=== PATIENT | female | born 1955 | race Caucasian/White ===

== ENCOUNTER → 2016-06-13 | Outpatient (REF) | payer BC ==
[~2016-06-13] MED LIST: ACET650T12 PO; ADV500INH INH; ALBU1.25 INH; ALBUTEROL INH; ASPI1TAB PO; AVEL1TAB PO; BIAX1TAB PO; BREO1INH3 INH; COMBAER6 INH; IPRATROPIUM INH; LEVA750T PO; NICO21DI5 TD; NICODIS TD; PRED20TAB PO; RIFA300C3 PO; SENO8.6T2 PO; SPIR1CAP INH; SPIRIVA HANDIHALER; TYLE500T78 PO; VITA200016 PO; VITAMIN D PO
[2016-06-13 12:22] LABS: MEAN CORPUSCULAR HEMOGLOBIN 30.7 pg (27.0-33.0); MEAN CORPUSCULAR VOLUME 95.9 fl (80.0-96.0); RED CELL DISTRIBUTION WIDTH 12.1 % (11.5-14.5); WHITE BLOOD COUNT 9.2 K/mm3 (4.0-10.0)
[2016-06-13 12:28] LABS: ALBUMIN 4.2 GM/DL (3.2-5.2); ALBUMIN/GLOBULIN RATIO 1.14 (1.00-1.93); ALKALINE PHOSPHATASE 119 U/L (45-117); ALT/SGPT 20 U/L (12-78); ANION GAP 4 MEQ/L (8-16); AST/SGOT 13 U/L (15-37); BILIRUBIN,TOTAL 0.2 MG/DL (0.2-1.0); BLOOD UREA NITROGEN 10 MG/DL (7-18); CALCIUM LEVEL 9.4 MG/DL (8.5-10.1); CARBON DIOXIDE LEVEL 37 MEQ/L (21-32); CHLORIDE LEVEL 97 MEQ/L (98-107); CREATININE FOR GFR 0.54 MG/DL (0.55-1.02); FREE T4 1.28 NG/DL (0.76-1.46); GLOMERULAR FILTRATION RATE > 60.0 (>51); GLUCOSE, FASTING 83 MG/DL (70-105); POTASSIUM SERUM 4.5 MEQ/L (3.5-5.1); SODIUM LEVEL 138 MEQ/L (136-145); TOTAL PROTEIN 7.9 GM/DL (6.4-8.2)
== END ==
LOC: M SFHCPLAZ 10:05
PROVIDERS: ATTEND Nurse Practitioner Family
DX: J44.9 Chronic obstructive pulmonary disease, unspecified (principal); K59.00 Constipation, unspecified; E55.9 Vitamin D deficiency, unspecified

== ENCOUNTER → 2016-11-21 | Outpatient (REF) | payer BC ==
[~2016-11-21] MED LIST changes: -AVEL1TAB PO; +AVEL1TAB3 PO; -BIAX1TAB PO; +BIAX500T13 PO; -LEVA750T PO; +LEVA750T7 PO; -SENO8.6T2 PO; +SENO8.6T5 PO
[2016-11-21 12:37] LABS: BASO # 0.1 K/mm3 (0.0-0.2); BASO % 0.6 % (0.0-1.0); EOS # 0.2 K/mm3 (0.0-0.50); EOS % 2.2 % (0.0-3.0); LARGE UNSTAINED CELL # 0.1 K/mm3 (0.0-0.4); LARGE UNSTAINED CELL % 1.2 % (0.0-4.0); LYMPH # 1.5 K/mm3 (1.5-4.5); LYMPH % 15.1 % (24.0-44.0); MEAN CORPUSCULAR HEMOGLOBIN 31.8 pg (27.0-33.0); MEAN CORPUSCULAR HGB CONC 33.5 g/dl (32.0-36.5); MEAN CORPUSCULAR VOLUME 94.9 fl (80.0-96.0); MONO # 0.7 K/mm3 (0.0-0.8); MONO % 6.5 % (0.0-5.0); NEUTROPHILS # 7.4 K/mm3 (1.8-7.7); NEUTROPHILS % 74.3 % (36.0-66.0); PLATELET COUNT, AUTOMATED 386 k/mm3 (150-450); RED CELL DISTRIBUTION WIDTH 12.4 % (11.5-14.5); WHITE BLOOD COUNT 9.9 K/mm3 (4.0-10.0)
[2016-11-21 13:12] LABS: ALBUMIN 3.6 GM/DL (3.2-5.2); ALKALINE PHOSPHATASE 119 U/L (45-117); ALT/SGPT 21 U/L (12-78); ANION GAP 6 MEQ/L (8-16); AST/SGOT 15 U/L (15-37); BILIRUBIN,TOTAL 0.3 MG/DL (0.2-1.0); BLOOD UREA NITROGEN 9 MG/DL (7-18); CALCIUM LEVEL 9.5 MG/DL (8.5-10.1); CARBON DIOXIDE LEVEL 35 MEQ/L (21-32); CHLORIDE LEVEL 96 MEQ/L (98-107); FREE T4 1.31 NG/DL (0.76-1.46); GLOMERULAR FILTRATION RATE > 60.0 (>51); GLUCOSE, FASTING 83 MG/DL (70-105); POTASSIUM SERUM 4.7 MEQ/L (3.5-5.1); SODIUM LEVEL 137 MEQ/L (136-145); TOTAL PROTEIN 7.6 GM/DL (6.4-8.2)
== END ==
LOC: M SFHCPLAZ 09:29
PROVIDERS: ATTEND Nurse Practitioner Family
DX: J44.9 Chronic obstructive pulmonary disease, unspecified (principal); K59.00 Constipation, unspecified; E55.9 Vitamin D deficiency, unspecified

== ENCOUNTER → 2017-02-10 | Outpatient (CLI) | payer BC ==
--- NOTE | 2017-02-10 12:58 | REP ---
Clinical: Chronic obstructive pulmonary disease. Technique: PA and lateral. Comparison: 07/08/2015. Findings: Advanced COPD and emphysematous changes with biapical scarring. A 3.1 cm nodular opacity in the right upper lung zone represents a change from prior examination and warrants CT evaluation. No effusion. No pneumothorax. Mediastinum and cardiac silhouette are stable and within normal limits. Skeletal structures are intact. Impression: Advanced COPD/emphysematous changes with biapical scarring. Zero 3.1 cm nodular opacity in the right upper lung zone. Contrast enhanced chest CT is recommended for further investigation. Signed by Derik Bajwa MD 02/10/2017 12:49 P
== END ==
LOC: M RAD 12:23
PROVIDERS: ATTEND Internal Medicine Pulmonary Disease
DX: J44.9 Chronic obstructive pulmonary disease, unspecified (principal)

== ENCOUNTER 2017-04-01 19:11 | Inpatient (IN) | payer BC ==
[2017-04-01] MEDS: methylPREDNISolone INJ 125 MG/2 ML VIAL (J2930) IV (20:00)
[2017-04-01] MEDS: IPRATROPIUM 0.5MG/ALBUTEROL 2.5MG INH SOL UD 3ML (DUONEB)(J7620) NEB ×3 (20:09→21:02)
[2017-04-01 20:26] LABS: ABG BASE EXCESS 24.7 (-2.0-2.0); ABG HCO3 60.5 MEQ/L (22.0-26.0); ABG O2 SATURATION 98.5 % (95.0-99.0); ABG PARTIAL PRESSURE O2 114.2 mmHg (75.0-100.0); ABG STANDARD HCO3 50.1 MEQ/L (22.0-26.0)
[2017-04-01 20:27] LABS: ABG PARTIAL PRESSURE CO2 145.5 mmHg (35.0-45.0); ABG pH (ARTERIAL) 7.237 UNITS (7.350-7.450)
[2017-04-01 20:31] LABS: BASO % 0.3 % (0.0-1.0); EOS # 0.1 10^3/uL (0.0-0.50); EOS % 0.8 % (0.0-3.0); HEMATOCRIT 48.3 % (36.0-47.0); HEMOGLOBIN 14.1 g/dl (12.0-16.0); IMMATURE GRANULOCYTE % 0.3 % (0-0); LYMPH # 0.9 10^3/uL (1.5-4.5); LYMPH % 8.2 % (24.0-44.0); MEAN CORPUSCULAR HGB CONC 29.2 g/dl (32.0-36.5); MEAN CORPUSCULAR VOLUME 102.8 fl (80.0-96.0); MONO # 1.4 10^3/uL (0.0-0.8); MONO % 12.5 % (0.0-5.0); NEUTROPHILS # 8.9 10^3/uL (1.8-7.7); NEUTROPHILS % 77.9 % (36.0-66.0); PLATELET COUNT, AUTOMATED 207 10^3/uL (150-450); RED CELL DISTRIBUTION WIDTH 13.3 % (11.5-14.5); WHITE BLOOD COUNT 11.4 10^3/uL (4.0-10.0)
[2017-04-01 20:59] LABS: LACTIC ACID SEPSIS PROTOCOL 0.5 MMOL/L (0.4-2.0)
[2017-04-01] MEDS ORDERED: IPRATROPIUM 0.5MG/ALBUTEROL 2.5MG INH SOL UD 3ML (DUONEB)(J7620) INH (21:30)
[2017-04-01] MEDS: NICOTINE 7 MG/24 HR TRANSDERMAL TD (21:45)
[2017-04-01 21:51] LABS: ABG BASE EXCESS 27.7 (-2.0-2.0); ABG HCO3 62.4 MEQ/L (22.0-26.0); ABG O2 SATURATION 93.1 % (95.0-99.0); ABG PARTIAL PRESSURE O2 60.4 mmHg (75.0-100.0); ABG STANDARD HCO3 53.6 MEQ/L (22.0-26.0); ABG TOTAL CO2 66.4 MEQ/L (22.0-29.0); ABG pH (ARTERIAL) 7.303 UNITS (7.350-7.450)
[2017-04-01 21:52] LABS: BLOOD UREA NITROGEN 16 MG/DL (7-18); CALCIUM LEVEL 10.2 MG/DL (8.5-10.1); CHLORIDE LEVEL 91 MEQ/L (98-107); CPK CREATINE PHOSPHOKINASE 55 U/L (26-192); CREATININE FOR GFR 0.38 MG/DL (0.55-1.02); GLOMERULAR FILTRATION RATE > 60.0 (>51); GLUCOSE, FASTING 111 MG/DL (70-105); TROPONIN I < 0.02 NG/ML (< 0.10)
[2017-04-01 21:53] LABS: ABG PARTIAL PRESSURE CO2 128.9 mmHg (35.0-45.0); CK-MB VALUE MASS 4.6 NG/ML (0.0-3.6); MB/CK RELATIVE INDEX 8.36 (< OR =4)
[2017-04-01 22:05] LABS: CARBON DIOXIDE LEVEL 50 MEQ/L (21-32); POTASSIUM SERUM 4.1 MEQ/L (3.5-5.1); SODIUM LEVEL 140 MEQ/L (136-145)
[2017-04-02] MEDS: methylPREDNISolone INJ 125 MG/2 ML VIAL (J2930) IV ×3 (05:35→22:11)
[2017-04-02 07:59] LABS: BASO % 0.2 % (0.0-1.0); EOS # 0.1 10^3/uL (0.0-0.50); EOS % 0.8 % (0.0-3.0); HEMATOCRIT 45.7 % (36.0-47.0); HEMOGLOBIN 13.5 g/dl (12.0-16.0); IMMATURE GRANULOCYTE # 0.1 10^3/uL (0-0); IMMATURE GRANULOCYTE % 0.6 % (0-0); LYMPH # 0.8 10^3/uL (1.5-4.5); LYMPH % 9.4 % (24.0-44.0); MEAN CORPUSCULAR HEMOGLOBIN 30.3 pg (27.0-33.0); MEAN CORPUSCULAR HGB CONC 29.5 g/dl (32.0-36.5); MEAN CORPUSCULAR VOLUME 102.5 fl (80.0-96.0); MONO # 0.2 10^3/uL (0.0-0.8); MONO % 2.7 % (0.0-5.0); NEUTROPHILS # 7.6 10^3/uL (1.8-7.7); NEUTROPHILS % 86.3 % (36.0-66.0); PLATELET COUNT, AUTOMATED 205 10^3/uL (150-450); RED BLOOD COUNT 4.46 10^6/uL (4.00-5.40); RED CELL DISTRIBUTION WIDTH 13.4 % (11.5-14.5); WHITE BLOOD COUNT 8.8 10^3/uL (4.0-10.0)
[2017-04-02] MEDS: ALBUTEROL SULFATE 2.5 MG/0.5 ML INH NEB SOLN INH ×2 (08:01→20:05)
[2017-04-02 08:13] LABS: ABG BASE EXCESS 25.1 (-2.0-2.0); ABG HCO3 60.4 MEQ/L (22.0-26.0); ABG O2 SATURATION 98.2 % (95.0-99.0); ABG PARTIAL PRESSURE O2 105.5 mmHg (75.0-100.0); ABG STANDARD HCO3 50.6 MEQ/L (22.0-26.0); ABG TOTAL CO2 64.6 MEQ/L (22.0-29.0); ABG pH (ARTERIAL) 7.263 UNITS (7.350-7.450)
[2017-04-02 08:19] LABS: ABG PARTIAL PRESSURE CO2 136.7 mmHg (35.0-45.0)
[2017-04-02 08:26] LABS: BLOOD UREA NITROGEN 14 MG/DL (7-18); CALCIUM LEVEL 9.7 MG/DL (8.5-10.1); CHLORIDE LEVEL 89 MEQ/L (98-107); CREATININE FOR GFR 0.45 MG/DL (0.55-1.02); GLOMERULAR FILTRATION RATE > 60.0 (>51); GLUCOSE, FASTING 200 MG/DL (70-105); SODIUM LEVEL 138 MEQ/L (136-145)
[2017-04-02 08:40] LABS: ANION GAP 1 MEQ/L (8-16); CARBON DIOXIDE LEVEL 48 MEQ/L (21-32)
[2017-04-02] MEDS: TIOTROPIUM INHALER/CAPSULE (SPIRIVA) INH (09:00)
[2017-04-02 09:58] LABS: ABG BASE EXCESS 19.8 (-2.0-2.0); ABG HCO3 49.2 MEQ/L (22.0-26.0); ABG O2 SATURATION 98.8 % (95.0-99.0); ABG PARTIAL PRESSURE O2 119.3 mmHg (75.0-100.0); ABG STANDARD HCO3 44.3 MEQ/L (22.0-26.0); ABG TOTAL CO2 51.7 MEQ/L (22.0-29.0); ABG pH (ARTERIAL) 7.412 UNITS (7.350-7.450)
[2017-04-02 10:00] LABS: ABG PARTIAL PRESSURE CO2 79.1 mmHg (35.0-45.0)
[2017-04-02] MEDS: ASPIRIN 81 MG ENTERIC TAB PO (10:32)
[2017-04-02] MEDS: VITAMIN D 1,000 INTERNATIONAL UNITS TABLET PO (10:32)
[2017-04-02] MEDS: buPROPion **XL** TABLET 150MG (WELLBUTRIN XL) PO (10:32)
[2017-04-02] MEDS: ESCITALOPRAM OXALATE 10 MG TAB (LEXAPRO) PO (10:32)
[2017-04-02] MEDS: ENOXAPARIN 40 MG/0.4 ML SYRINGE (J1650) SC (10:33)
[2017-04-02 12:56] LABS: ABG BASE EXCESS 17.6 (-2.0-2.0); ABG HCO3 47.9 MEQ/L (22.0-26.0); ABG O2 SATURATION 74.7 % (95.0-99.0); ABG STANDARD HCO3 41.1 MEQ/L (22.0-26.0); ABG TOTAL CO2 50.5 MEQ/L (22.0-29.0); ABG pH (ARTERIAL) 7.369 UNITS (7.350-7.450)
[2017-04-02 12:57] LABS: ABG PARTIAL PRESSURE CO2 84.9 mmHg (35.0-45.0); ABG PARTIAL PRESSURE O2 34.7 mmHg (75.0-100.0)
[2017-04-03] MEDS: methylPREDNISolone INJ 125 MG/2 ML VIAL (J2930) IV ×3 (05:54→21:27)
[2017-04-03 07:28] LABS: BASO % 0.1 % (0.0-1.0); HEMOGLOBIN 14.3 g/dl (12.0-16.0); IMMATURE GRANULOCYTE % 0.4 % (0-0); LYMPH # 0.9 10^3/uL (1.5-4.5); MEAN CORPUSCULAR HEMOGLOBIN 30.2 pg (27.0-33.0); MEAN CORPUSCULAR HGB CONC 31.1 g/dl (32.0-36.5); MEAN CORPUSCULAR VOLUME 97.3 fl (80.0-96.0); MONO # 0.5 10^3/uL (0.0-0.8); MONO % 6.3 % (0.0-5.0); NEUTROPHILS % 81.2 % (36.0-66.0); PLATELET COUNT, AUTOMATED 218 10^3/uL (150-450); RED BLOOD COUNT 4.73 10^6/uL (4.00-5.40); RED CELL DISTRIBUTION WIDTH 13.2 % (11.5-14.5); WHITE BLOOD COUNT 7.4 10^3/uL (4.0-10.0)
[2017-04-03 07:56] LABS: BLOOD UREA NITROGEN 21 MG/DL (7-18); CALCIUM LEVEL 9.9 MG/DL (8.5-10.1); CHLORIDE LEVEL 92 MEQ/L (98-107); GLOMERULAR FILTRATION RATE > 60.0 (>51); GLUCOSE, FASTING 117 MG/DL (70-105); POTASSIUM SERUM 3.8 MEQ/L (3.5-5.1); SODIUM LEVEL 139 MEQ/L (136-145)
[2017-04-03 08:29] LABS: ANION GAP 2 MEQ/L (8-16); CARBON DIOXIDE LEVEL 45 MEQ/L (21-32)
[2017-04-03] MEDS: ALBUTEROL SULFATE 2.5 MG/0.5 ML INH NEB SOLN INH (08:57)
[2017-04-03] MEDS: TIOTROPIUM INHALER/CAPSULE (SPIRIVA) INH (08:58)
[2017-04-03] MEDS: buPROPion **XL** TABLET 150MG (WELLBUTRIN XL) PO (09:41)
[2017-04-03] MEDS: VITAMIN D 1,000 INTERNATIONAL UNITS TABLET PO (09:41)
[2017-04-03] MEDS: ASPIRIN 81 MG ENTERIC TAB PO (09:41)
[2017-04-03] MEDS: ESCITALOPRAM OXALATE 10 MG TAB (LEXAPRO) PO (09:41)
[2017-04-03 09:42] LABS: ABG BASE EXCESS 12.4 (-2.0-2.0); ABG HCO3 39.5 MEQ/L (22.0-26.0); ABG O2 SATURATION 94.2 % (95.0-99.0); ABG STANDARD HCO3 36.1 MEQ/L (22.0-26.0); ABG TOTAL CO2 41.4 MEQ/L (22.0-29.0); ABG pH (ARTERIAL) 7.426 UNITS (7.350-7.450)
[2017-04-03] MEDS: ENOXAPARIN 40 MG/0.4 ML SYRINGE (J1650) SC (09:42)
[2017-04-03 09:46] LABS: ABG PARTIAL PRESSURE CO2 61.5 mmHg (35.0-45.0)
[2017-04-03 09:47] LABS: ABG PARTIAL PRESSURE O2 71.1 mmHg (75.0-100.0)
[2017-04-03 11:43] LABS: ABG BASE EXCESS 18.5 (-2.0-2.0); ABG HCO3 47.5 MEQ/L (22.0-26.0); ABG O2 SATURATION 94.2 % (95.0-99.0); ABG PARTIAL PRESSURE O2 67.7 mmHg (75.0-100.0); ABG STANDARD HCO3 42.7 MEQ/L (22.0-26.0); ABG TOTAL CO2 49.8 MEQ/L (22.0-29.0); ABG pH (ARTERIAL) 7.418 UNITS (7.350-7.450)
[2017-04-03 11:46] LABS: ABG PARTIAL PRESSURE CO2 75.2 mmHg (35.0-45.0)
[2017-04-03] MEDS ORDERED: ALBUTEROL SULFATE 2.5 MG/0.5 ML INH NEB SOLN NEB (18:30)
[2017-04-03] MEDS: IPRATROPIUM 0.5MG/ALBUTEROL 2.5MG INH SOL UD 3ML (DUONEB)(J7620) NEB (23:34)
[2017-04-03] MEDS: SYMBICORT 160/4.5MCG INHALER 6GM INH (23:35)
[2017-04-04 05:14] LABS: HEMATOCRIT 45.7 % (36.0-47.0); HEMOGLOBIN 14.2 g/dl (12.0-16.0); IMMATURE GRANULOCYTE % 0.4 % (0-0); LYMPH # 0.9 10^3/uL (1.5-4.5); MEAN CORPUSCULAR HEMOGLOBIN 30.1 pg (27.0-33.0); MEAN CORPUSCULAR HGB CONC 31.1 g/dl (32.0-36.5); MONO # 0.3 10^3/uL (0.0-0.8); MONO % 4.3 % (0.0-5.0); NEUTROPHILS % 83.3 % (36.0-66.0); PLATELET COUNT, AUTOMATED 210 10^3/uL (150-450); RED BLOOD COUNT 4.71 10^6/uL (4.00-5.40); RED CELL DISTRIBUTION WIDTH 13.2 % (11.5-14.5); WHITE BLOOD COUNT 7.2 10^3/uL (4.0-10.0)
[2017-04-04] MEDS: methylPREDNISolone INJ 125 MG/2 ML VIAL (J2930) IV (05:19)
[2017-04-04 05:35] LABS: BLOOD UREA NITROGEN 35 MG/DL (7-18); CALCIUM LEVEL 9.5 MG/DL (8.5-10.1); CHLORIDE LEVEL 93 MEQ/L (98-107); CREATININE FOR GFR 0.46 MG/DL (0.55-1.02); GLOMERULAR FILTRATION RATE > 60.0 (>51); GLUCOSE, FASTING 122 MG/DL (70-105); POTASSIUM SERUM 3.9 MEQ/L (3.5-5.1); SODIUM LEVEL 140 MEQ/L (136-145)
[2017-04-04 05:47] LABS: CARBON DIOXIDE LEVEL 50 MEQ/L (21-32)
[2017-04-04] MEDS: SYMBICORT 160/4.5MCG INHALER 6GM INH ×2 (07:40→20:32)
[2017-04-04] MEDS: IPRATROPIUM 0.5MG/ALBUTEROL 2.5MG INH SOL UD 3ML (DUONEB)(J7620) NEB ×4 (07:40→20:00)
[2017-04-04] MEDS: TIOTROPIUM INHALER/CAPSULE (SPIRIVA) INH (07:40)
[2017-04-04 07:43] LABS: ABG BASE EXCESS 18.3 (-2.0-2.0); ABG HCO3 49.2 MEQ/L (22.0-26.0); ABG O2 SATURATION 96.7 % (95.0-99.0); ABG PARTIAL PRESSURE O2 86.5 mmHg (75.0-100.0); ABG STANDARD HCO3 42.6 MEQ/L (22.0-26.0); ABG pH (ARTERIAL) 7.352 UNITS (7.350-7.450)
[2017-04-04 07:45] LABS: ABG PARTIAL PRESSURE CO2 90.7 mmHg (35.0-45.0)
[2017-04-04] MEDS: VITAMIN D 1,000 INTERNATIONAL UNITS TABLET PO (09:30)
[2017-04-04] MEDS: ESCITALOPRAM OXALATE 10 MG TAB (LEXAPRO) PO (09:30)
[2017-04-04] MEDS: buPROPion **XL** TABLET 150MG (WELLBUTRIN XL) PO (09:30)
[2017-04-04] MEDS: ASPIRIN 81 MG ENTERIC TAB PO (09:31)
[2017-04-04] MEDS: ENOXAPARIN 40 MG/0.4 ML SYRINGE (J1650) SC (09:31)
[2017-04-04] MEDS: predniSONE 20 MG TAB PO (11:38)
[2017-04-05 06:46] LABS: HEMATOCRIT 43.9 % (36.0-47.0); HEMOGLOBIN 13.4 g/dl (12.0-16.0); IMMATURE GRANULOCYTE % 0.2 % (0-0); LYMPH # 1.6 10^3/uL (1.5-4.5); LYMPH % 17.7 % (24.0-44.0); MEAN CORPUSCULAR HEMOGLOBIN 29.8 pg (27.0-33.0); MEAN CORPUSCULAR HGB CONC 30.5 g/dl (32.0-36.5); MEAN CORPUSCULAR VOLUME 97.6 fl (80.0-96.0); MONO # 1.4 10^3/uL (0.0-0.8); MONO % 15.3 % (0.0-5.0); NEUTROPHILS # 6.2 10^3/uL (1.8-7.7); NEUTROPHILS % 66.8 % (36.0-66.0); PLATELET COUNT, AUTOMATED 198 10^3/uL (150-450); RED CELL DISTRIBUTION WIDTH 13.5 % (11.5-14.5); WHITE BLOOD COUNT 9.3 10^3/uL (4.0-10.0)
[2017-04-05 07:06] LABS: BLOOD UREA NITROGEN 31 MG/DL (7-18); CALCIUM LEVEL 9.2 MG/DL (8.5-10.1); CHLORIDE LEVEL 96 MEQ/L (98-107); GLOMERULAR FILTRATION RATE > 60.0 (>51); GLUCOSE, FASTING 87 MG/DL (70-105); POTASSIUM SERUM 3.4 MEQ/L (3.5-5.1); SODIUM LEVEL 143 MEQ/L (136-145)
[2017-04-05 07:14] LABS: ANION GAP 0 MEQ/L (8-16)
[2017-04-05 07:21] LABS: CARBON DIOXIDE LEVEL 47 MEQ/L (21-32)
[2017-04-05] MEDS: IPRATROPIUM 0.5MG/ALBUTEROL 2.5MG INH SOL UD 3ML (DUONEB)(J7620) NEB ×4 (07:54→19:59)
[2017-04-05] MEDS: TIOTROPIUM INHALER/CAPSULE (SPIRIVA) INH (07:54)
[2017-04-05] MEDS: SYMBICORT 160/4.5MCG INHALER 6GM INH ×2 (07:55→19:58)
[2017-04-05] MEDS: ASPIRIN 81 MG ENTERIC TAB PO (08:59)
[2017-04-05] MEDS: VITAMIN D 1,000 INTERNATIONAL UNITS TABLET PO (08:59)
[2017-04-05] MEDS: buPROPion **XL** TABLET 150MG (WELLBUTRIN XL) PO (08:59)
[2017-04-05] MEDS: predniSONE 20 MG TAB PO (08:59)
[2017-04-05] MEDS: POTASSIUM CHLORIDE 10 MEQ SR TABLET PO (08:59)
[2017-04-05] MEDS: ESCITALOPRAM OXALATE 10 MG TAB (LEXAPRO) PO (08:59)
[2017-04-05] MEDS: ENOXAPARIN 40 MG/0.4 ML SYRINGE (J1650) SC (09:00)
[2017-04-06 06:47] LABS: BASO % 0.1 % (0.0-1.0); EOS % 0.2 % (0.0-3.0); HEMATOCRIT 42.6 % (36.0-47.0); IMMATURE GRANULOCYTE % 0.3 % (0-0); LYMPH # 1.8 10^3/uL (1.5-4.5); LYMPH % 15.4 % (24.0-44.0); MEAN CORPUSCULAR HEMOGLOBIN 30.3 pg (27.0-33.0); MEAN CORPUSCULAR HGB CONC 30.5 g/dl (32.0-36.5); MEAN CORPUSCULAR VOLUME 99.3 fl (80.0-96.0); MONO # 1.9 10^3/uL (0.0-0.8); MONO % 16.5 % (0.0-5.0); NEUTROPHILS # 7.7 10^3/uL (1.8-7.7); NEUTROPHILS % 67.5 % (36.0-66.0); PLATELET COUNT, AUTOMATED 198 10^3/uL (150-450); RED BLOOD COUNT 4.29 10^6/uL (4.00-5.40); RED CELL DISTRIBUTION WIDTH 13.8 % (11.5-14.5); WHITE BLOOD COUNT 11.3 10^3/uL (4.0-10.0)
[2017-04-06 07:06] LABS: BLOOD UREA NITROGEN 24 MG/DL (7-18); CALCIUM LEVEL 9.2 MG/DL (8.5-10.1); CHLORIDE LEVEL 99 MEQ/L (98-107); CREATININE FOR GFR 0.36 MG/DL (0.55-1.02); GLOMERULAR FILTRATION RATE > 60.0 (>51); GLUCOSE, FASTING 82 MG/DL (70-105); MAGNESIUM LEVEL 2.2 MG/DL (1.8-2.4); POTASSIUM SERUM 3.8 MEQ/L (3.5-5.1); SODIUM LEVEL 143 MEQ/L (136-145)
[2017-04-06] MEDS: SYMBICORT 160/4.5MCG INHALER 6GM INH ×2 (07:42→22:56)
[2017-04-06] MEDS: TIOTROPIUM INHALER/CAPSULE (SPIRIVA) INH (07:42)
[2017-04-06] MEDS: IPRATROPIUM 0.5MG/ALBUTEROL 2.5MG INH SOL UD 3ML (DUONEB)(J7620) NEB ×4 (07:44→20:00)
[2017-04-06] MEDS: buPROPion **XL** TABLET 150MG (WELLBUTRIN XL) PO (08:31)
[2017-04-06] MEDS: VITAMIN D 1,000 INTERNATIONAL UNITS TABLET PO (08:31)
[2017-04-06] MEDS: predniSONE 20 MG TAB PO (08:31)
[2017-04-06] MEDS: POTASSIUM CHLORIDE 10 MEQ SR TABLET PO (08:31)
[2017-04-06] MEDS: ESCITALOPRAM OXALATE 10 MG TAB (LEXAPRO) PO (08:32)
[2017-04-06] MEDS: ENOXAPARIN 40 MG/0.4 ML SYRINGE (J1650) SC (08:32)
[2017-04-06] MEDS: ASPIRIN 81 MG ENTERIC TAB PO (08:32)
[2017-04-07 06:55] LABS: EOS # 0.1 10^3/uL (0.0-0.50); EOS % 0.7 % (0.0-3.0); HEMATOCRIT 42.6 % (36.0-47.0); IMMATURE GRANULOCYTE % 0.3 % (0-0); LYMPH # 1.6 10^3/uL (1.5-4.5); LYMPH % 12.7 % (24.0-44.0); MEAN CORPUSCULAR HEMOGLOBIN 30.2 pg (27.0-33.0); MEAN CORPUSCULAR HGB CONC 30.5 g/dl (32.0-36.5); MEAN CORPUSCULAR VOLUME 98.8 fl (80.0-96.0); MONO # 1.7 10^3/uL (0.0-0.8); MONO % 13.3 % (0.0-5.0); NEUTROPHILS # 9.4 10^3/uL (1.8-7.7); PLATELET COUNT, AUTOMATED 154 10^3/uL (150-450); RED BLOOD COUNT 4.31 10^6/uL (4.00-5.40); RED CELL DISTRIBUTION WIDTH 13.7 % (11.5-14.5); WHITE BLOOD COUNT 12.9 10^3/uL (4.0-10.0)
[2017-04-07 07:22] LABS: ANION GAP 2 MEQ/L (8-16); BLOOD UREA NITROGEN 19 MG/DL (7-18); CALCIUM LEVEL 9.4 MG/DL (8.5-10.1); CARBON DIOXIDE LEVEL 42 MEQ/L (21-32); CHLORIDE LEVEL 100 MEQ/L (98-107); GLOMERULAR FILTRATION RATE > 60.0 (>51); GLUCOSE, FASTING 70 MG/DL (70-105); POTASSIUM SERUM 3.9 MEQ/L (3.5-5.1); SODIUM LEVEL 144 MEQ/L (136-145)
[2017-04-07] MEDS: TIOTROPIUM INHALER/CAPSULE (SPIRIVA) INH (07:54)
[2017-04-07] MEDS: SYMBICORT 160/4.5MCG INHALER 6GM INH ×2 (07:55→22:23)
[2017-04-07] MEDS: IPRATROPIUM 0.5MG/ALBUTEROL 2.5MG INH SOL UD 3ML (DUONEB)(J7620) NEB ×4 (07:55→22:23)
[2017-04-07] MEDS: VITAMIN D 1,000 INTERNATIONAL UNITS TABLET PO (08:14)
[2017-04-07] MEDS: predniSONE 20 MG TAB PO (08:14)
[2017-04-07] MEDS: buPROPion **XL** TABLET 150MG (WELLBUTRIN XL) PO (08:15)
[2017-04-07] MEDS: ESCITALOPRAM OXALATE 10 MG TAB (LEXAPRO) PO (08:15)
[2017-04-07] MEDS: ASPIRIN 81 MG ENTERIC TAB PO (08:15)
[2017-04-07] MEDS: POTASSIUM CHLORIDE 10 MEQ SR TABLET PO (08:15)
[2017-04-07] MEDS ORDERED: ENOXAPARIN 40 MG/0.4 ML SYRINGE (J1650) SC (09:00)
[2017-04-07] MEDS: NYSTATIN 500,000 U/5 ML SUSP UDC PO (20:06)
[2017-04-07] MEDS: ENOXAPARIN 40 MG/0.4 ML SYRINGE (J1650) SC (20:06)
[2017-04-08 07:15] LABS: BASO % 0.1 % (0.0-1.0); EOS # 0.1 10^3/uL (0.0-0.50); EOS % 0.7 % (0.0-3.0); HEMATOCRIT 40.2 % (36.0-47.0); HEMOGLOBIN 12.5 g/dl (12.0-16.0); IMMATURE GRANULOCYTE % 0.3 % (0-0); LYMPH # 1.8 10^3/uL (1.5-4.5); LYMPH % 12.2 % (24.0-44.0); MEAN CORPUSCULAR HEMOGLOBIN 30.3 pg (27.0-33.0); MEAN CORPUSCULAR HGB CONC 31.1 g/dl (32.0-36.5); MEAN CORPUSCULAR VOLUME 97.6 fl (80.0-96.0); MONO # 1.8 10^3/uL (0.0-0.8); MONO % 12.6 % (0.0-5.0); NEUTROPHILS # 10.7 10^3/uL (1.8-7.7); NEUTROPHILS % 74.1 % (36.0-66.0); PLATELET COUNT, AUTOMATED 192 10^3/uL (150-450); RED BLOOD COUNT 4.12 10^6/uL (4.00-5.40); RED CELL DISTRIBUTION WIDTH 13.8 % (11.5-14.5); WHITE BLOOD COUNT 14.4 10^3/uL (4.0-10.0)
[2017-04-08] MEDS: TIOTROPIUM INHALER/CAPSULE (SPIRIVA) INH (07:28)
[2017-04-08] MEDS: SYMBICORT 160/4.5MCG INHALER 6GM INH (07:28)
[2017-04-08] MEDS: IPRATROPIUM 0.5MG/ALBUTEROL 2.5MG INH SOL UD 3ML (DUONEB)(J7620) NEB (07:29)
[2017-04-08 07:39] LABS: ANION GAP 3 MEQ/L (8-16); BLOOD UREA NITROGEN 18 MG/DL (7-18); CALCIUM LEVEL 9.5 MG/DL (8.5-10.1); CARBON DIOXIDE LEVEL 41 MEQ/L (21-32); CHLORIDE LEVEL 97 MEQ/L (98-107); CREATININE FOR GFR 0.27 MG/DL (0.55-1.02); GLOMERULAR FILTRATION RATE > 60.0 (>51); GLUCOSE, FASTING 79 MG/DL (70-105); POTASSIUM SERUM 3.8 MEQ/L (3.5-5.1); SODIUM LEVEL 141 MEQ/L (136-145)
[2017-04-08] MEDS: POTASSIUM CHLORIDE 10 MEQ SR TABLET PO (09:23)
[2017-04-08] MEDS: buPROPion **XL** TABLET 150MG (WELLBUTRIN XL) PO (09:23)
[2017-04-08] MEDS: ASPIRIN 81 MG ENTERIC TAB PO (09:23)
[2017-04-08] MEDS: VITAMIN D 1,000 INTERNATIONAL UNITS TABLET PO (09:23)
[2017-04-08] MEDS: ESCITALOPRAM OXALATE 10 MG TAB (LEXAPRO) PO (09:24)
[2017-04-08] MEDS: NYSTATIN 500,000 U/5 ML SUSP UDC PO (09:24)
[2017-04-08] MEDS: NICOTINE 7 MG/24 HR TRANSDERMAL TD (09:24)
[2017-04-08] MEDS: predniSONE 20 MG TAB PO (09:24)
== END 2017-04-08 11:53 | disposition home health service (06) | DRG 133 ==
LOC: M MS5PR 04-04 14:17 → M PED 04-07 21:55 → M ED INP 22:21 → M ICU 04-03 18:35 → M ED 19:11 → M ED INP 22:21
PROC: 5A09357 Assistance with Respiratory Ventilation, Less than 24 Consecutive Hours, Continuous Positive Airway Pressure (ICD-10-PCS; principal; 2017-04-01)
DX: J96.21 Acute and chronic respiratory failure with hypoxia (principal); E43 Unspecified severe protein-calorie malnutrition; E87.3 Alkalosis; J44.1 Chronic obstructive pulmonary disease with (acute) exacerbation; J96.22 Acute and chronic respiratory failure with hypercapnia; E55.9 Vitamin D deficiency, unspecified; F17.210 Nicotine dependence, cigarettes, uncomplicated; F32.9 Major depressive disorder, single episode, unspecified; K21.9 Gastro-esophageal reflux disease without esophagitis; Z66 Do not resuscitate; R26.81 Unsteadiness on feet; Z79.899 Other long term (current) drug therapy; Z79.82 Long term (current) use of aspirin

== ENCOUNTER → 2017-10-01 | Outpatient (CLI) | payer MEDICARE | LOC: M WHC 14:07 | DX: Z12.31 Encounter for screening mammogram for malignant neoplasm of breast (principal); Z78.0 Asymptomatic menopausal state; Z92.89 Personal history of other medical treatment; Z80.3 Family history of malignant neoplasm of breast | CPT/HCPCS: 77067 ==

== ENCOUNTER → 2018-11-22 | Outpatient (CLI) | payer MEDICARE ==
[~2018-11-22] MED LIST changes: +ACET25TA12 PO; +ALBU83IN INH; -ASPI1TAB PO; +ASPI81TA26 PO; +ASPI81TAEC PO; -BIAX500T13 PO; +BIAX500T14 PO; +BUPR150T3 PO; +DELT1TAB PO; +ESCI10TA2 PO; -NICO21DI5 TD; +NICO21DI6 TD; +NICO7DIS24 TD; +NYST50SS SS; +PROV108A NEB
[2018-11-22 14:15] LABS: ALBUMIN 3.3 GM/DL (3.2-5.2); ALT/SGPT 27 U/L (12-78); BILIRUBIN,TOTAL 0.3 MG/DL (0.2-1.0); BLOOD UREA NITROGEN 12 MG/DL (7-18); CALCIUM LEVEL 9.8 MG/DL (8.8-10.2); CARBON DIOXIDE LEVEL 36 MEQ/L (21-32); CHLORIDE LEVEL 97 MEQ/L (98-107); CHOLESTEROL LEVEL 165 MG/DL (<200); CHOLESTEROL RISK RATIO 2.578 (<5); CREATININE FOR GFR 0.52 MG/DL (0.55-1.30); FREE T4 1.21 NG/DL (0.76-1.46); GLOMERULAR FILTRATION RATE > 60.0 (>45); GLUCOSE, FASTING 89 MG/DL (70-100); HDL CHOLESTEROL 64 MG/DL (>40); LDL CHOLESTEROL 85 MG/DL (<100); NON-HDL-C 101 MG/DL; POTASSIUM SERUM 4.7 MEQ/L (3.5-5.1); SODIUM LEVEL 138 MEQ/L (136-145); TOTAL PROTEIN 7.4 GM/DL (6.4-8.2); TRIGLYCERIDES LEVEL 81 MG/DL (<150)
== END ==
LOC: M WUC 10:50
PROVIDERS: ATTEND Nurse Practitioner Family
DX: I51.81 Takotsubo syndrome (principal); F41.9 Anxiety disorder, unspecified

== ENCOUNTER → 2018-11-28 | Outpatient (REF) | payer MEDICARE ==
[2018-11-28 18:16] LABS: AMORPHOUS SEDIMENT SMALL (NEGATIVE); APPEARANCE, URINE HAZY (CLEAR); BACTERIA, URINE AUTO NEGATIVE (NEGATIVE); BILIRUBIN, URINE AUTO 2+ (NEGATIVE); BLOOD, URINE BLOOD NEGATIVE (NEGATIVE); CALCIUM OXALATE CRYSTALS MODERATE; COLOR, URINE YELLOW (YELLOW); GLUCOSE, URINE (UA) AUTO NEGATIVE (NEGATIVE); KETONE, URINE AUTO TRACE mg/dL (NEGATIVE); LEUKOCYTE ESTERASE, URINE AUTO NEGATIVE (NEGATIVE); MUCUS, URINE SMALL (NEGATIVE); NITRITE, URINE AUTO NEGATIVE (NEGATIVE); PROTEIN, URINE AUTO 1+ mg/dL (NEGATIVE); RBC, URINE AUTO 9 /HPF (0-3); SQUAMOUS EPITHELIAL CELL UR AU 0 /HPF (0-6); WBC, URINE AUTO 1 /HPF (0-3)
== END ==
LOC: M SFHCPLAZ 15:50
PROVIDERS: ATTEND Nurse Practitioner Family
DX: N30.01 Acute cystitis with hematuria (principal)

== ENCOUNTER → 2019-01-22 | Outpatient (REF) | payer MEDICARE ==
[2019-01-22 11:49] LABS: BASO # 0.1 10^3/uL (0.0-0.2); BASO % 0.7 % (0.0-1.0); EOS # 0.1 10^3/uL (0.0-0.5); EOS % 1.1 % (0.0-3.0); HEMATOCRIT 42.6 % (36.0-47.0); HEMOGLOBIN 12.6 g/dl (12.0-15.5); LYMPH # 1.9 10^3/uL (1.5-5.0); LYMPH % 16.5 % (24.0-44.0); MEAN CORPUSCULAR HEMOGLOBIN 28.6 pg (27.0-33.0); MEAN CORPUSCULAR HGB CONC 29.6 g/dl (32.0-36.5); MEAN CORPUSCULAR VOLUME 96.8 fl (80.0-96.0); MONO # 1.1 10^3/uL (0.0-0.8); MONO % 9.8 % (0.0-5.0); NEUTROPHILS # 8.1 10^3/uL (1.5-8.5); NEUTROPHILS % 70.4 % (36.0-66.0); PLATELET COUNT, AUTOMATED 506 10^3/uL (150-450); WHITE BLOOD COUNT 11.6 10^3/uL (4.0-10.0)
[2019-01-22 12:21] LABS: BLOOD UREA NITROGEN 6 MG/DL (7-18); CALCIUM LEVEL 9.8 MG/DL (8.8-10.2); CARBON DIOXIDE LEVEL 35 MEQ/L (21-32); CHLORIDE LEVEL 98 MEQ/L (98-107); CREATININE FOR GFR 0.46 MG/DL (0.55-1.30); GLOMERULAR FILTRATION RATE > 60.0 (>45); GLUCOSE, FASTING 101 MG/DL (70-100); POTASSIUM SERUM 4.9 MEQ/L (3.5-5.1); SODIUM LEVEL 138 MEQ/L (136-145)
== END ==
LOC: M SFHCPLAZ 10:28
PROVIDERS: ATTEND Nurse Practitioner Family
DX: K62.5 Hemorrhage of anus and rectum (principal)

== ENCOUNTER 2019-04-17 07:42 | Day surgery (SDC) | payer MEDICARE ==
[~2019-04-17] VITALS: Ht 162.6 cm; Wt 44.6 kg
[~2019-04-17 07:42] MED LIST changes: +ATOR40TA75 PO; +AZEL0.055 NARES; +DOCU-129 PO; +IBUP-1114 PO; +LIDO5DIS41 TD; +LISI-1046 PO; +MIRT1TAB15 PO; +MULTCAP PO; +NS 1,000 ML IV ONE; +OMEP40CA97 PO; +VITA100054 PO
[2019-04-17] MEDS ORDERED: propofoL 200 MG/20 ML VIAL As Ordered ONE (08:45)
[2019-04-17] MEDS ORDERED: LIDOCAINE 2% INJ 100 MG/5 ML SDV (FOR ANES.) As Ordered ONE (08:45)
--- NOTE | 2019-04-17 09:38 | ROOR ---
Patient Name: Agueda Watkins Procedure Date: 04/17/2019 8:54 AM Date of : 1955 Age: 63 Room: [facility] Gender: Female Note Status: Finalized Procedure: Colonoscopy Indications: Hematochezia Providers: Dante FRANCIS MD Referring MD: Divya Mehta NP Requesting Provider: Medicines: Monitored Anesthesia Care Complications: No immediate complications. Procedure: Pre-Anesthesia Assessment: - The heart rate, respiratory rate, oxygen saturations, blood pressure, adequacy of pulmonary ventilation, and response to care were monitored throughout the procedure. The Colonoscope was introduced through the anus and advanced to the cecum, identified by appendiceal orifice and ileocecal valve. The colonoscopy was somewhat difficult due to a redundant colon and a tortuous colon. The patient tolerated the procedure well. The quality of the bowel preparation was good. Findings: The perianal and digital rectal examinations were normal. Internal hemorrhoids were found during retroflexion. The hemorrhoids were medium-sized. Four sessile polyps were found in the sigmoid colon and cecum. The polyps were diminutive in size. These polyps were removed with a cold snare. Resection and retrieval were complete. The colon (entire examined portion) was redundant. Advancing the scope required using manual pressure. The exam was otherwise without abnormality. Impression: - Internal hemorrhoids. - Four diminutive polyps in the sigmoid colon and in the cecum, removed with a cold snare. Resected and retrieved. - Redundant colon. - The examination was otherwise normal. Recommendation: - Repeat colonoscopy in 3 years for surveillance (and tortuous colon). Dante Francis MD Dante FRNACIS MD 04/17/2019 9:38:02 AM Electronically signed by Dante FRANCIS MD Number of Addenda: 0 Note Initiated On: 04/17/2019 8:54 AM Estimated Blood Loss: Estimated blood loss: none.
[2019-04-17 09:50] VITALS: BP 111/65
== END 2019-04-17 10:14 | disposition home or self-care (01) ==
LOC: M OPP 07:42
PROVIDERS: ATTEND Internal Medicine Gastroenterology
DX: K92.1 Melena (principal); K59.09 Other constipation; K63.5 Polyp of colon; Q43.8 Other specified congenital malformations of intestine; K64.8 Other hemorrhoids; I11.0 Hypertensive heart disease with heart failure; K21.9 Gastro-esophageal reflux disease without esophagitis; F41.9 Anxiety disorder, unspecified; J44.9 Chronic obstructive pulmonary disease, unspecified; F17.200 Nicotine dependence, unspecified, uncomplicated; Z79.899 Other long term (current) drug therapy

== ENCOUNTER → 2019-05-27 | Outpatient (CLI) | payer MEDICARE ==
[~2019-05-27] MED LIST changes: -NS 1,000 ML IV ONE
--- NOTE | 2019-05-27 12:32 | REP ---
PA and lateral chest: Comparison is 11/26/2017. There is chronic advanced parenchymal scarring in the upper lobes bilaterally with retraction. This is a unchanged. There is chronic hyperinflation, unchanged. There are no infiltrates or pleural effusions. There are no masses or nodules. The kingsley, mediastinum, skeletal structures are unchanged. There is demineralization and kyphosis, unchanged. Impression: There are chronic stable changes as described. There are no new or acute cardiopulmonary findings. Electronically Signed by Audie Cassidy MD 05/27/2019 12:22 P
== END ==
LOC: M WUC 12:11
PROVIDERS: ATTEND Internal Medicine Pulmonary Disease
DX: J44.9 Chronic obstructive pulmonary disease, unspecified (principal)

== ENCOUNTER 2019-07-14 12:05 | Inpatient (IN) | payer MEDICARE ==
[2019-07-14] VITALS (16 sets, daily range): BP systolic 106–186; BP diastolic 63–114; O2SAT 94
[~2019-07-14] VITALS: Ht 162.6 cm; Wt 47.1 kg
[~2019-07-14 12:05] MED LIST changes: +PROV108A INH; -PROV108A NEB
[2019-07-14] MEDS ORDERED: ALBUTEROL SULFATE 2.5 MG/0.5 ML INH NEB SOLN NEB PRN (15:00)
--- NOTE | 2019-07-14 16:08 | HPEPDOC ---
General Date of Admission Jul 14, 2019 at 14:47 Date of Service: Jul 14, 2019 Chief Complaint The patient is a 64-year-old female admitted with a reason for visit of Hypercapnic Respiratory Failure. Source: EMS notes reviewed, Old records Exam Limitations: Clinical conditions Timing/Duration: Day(s) Associated Symptoms: Shortness of breath History of Present Illness Patient is 64 years old female with past medical history end-stage COPD, coronar y artery diseases was transferred to the [facility] hospital with generalized weakness. According to records patient was found to have acute hypercarbic respiratory failure, CT chest with contrast showed emphysema of both lungs, severe pleural parenchymal scaring suspicious for infectious process or malignancy. White blood count 10.6, hemoglobin 12.2, glucose level 147, venous blood gas pertinent pH 7.3, CO2 57 oxygen 35. When I saw the patient patient was somnolent, did not answer my questions. Of note, patient is active smoker, 2 L of oxygen is her baseline. Home Medications Scheduled Acetaminophen/Diphenhydramine (Acetaminophen Pm Caplet) 1 Tab Tab, 2 TAB PO QHS, (Reported) Albuterol Sulf (Albuterol Sulfate) 2.5 Mg/3 Ml Nebu, 2.5 MG INH BID, (Reported) Atorvastatin Calcium (Atorvastatin Calcium) 40 Mg Tablet, 40 MG PO DAILY, (Reported) Bupropion Hcl (Bupropion Xl) 150 Mg Tab, 150 MG PO DAILY, (Reported) Cholecalciferol (Vitamin D3) (Vitamin D3) 1,000 Unit Tablet, 1,000 UNITS PO DAILY, (Reported) Fluticasone/Vilanterol (Breo Ellipta 200-25 Mcg INH) 1 Inh Inh, 1 INH INH DAILY, (Reported) Lactulose (Lactulose) 10 Gm/15 Ml Solution, 15 ML PO DAILY, (Reported) Lisinopril (Lisinopril) 2.5 Mg Tablet, 2.5 MG PO DAILY, (Reported) Mirtazapine (Mirtazapine) 30 Mg Tab.rapdis, 30 MG PO QHS, (Reported) Multivitamin (Multivitamins) 1 Each Capsule, 1 CAP PO DAILY, (Reported) Nicotine (Nicotine Patch) 7 Mg/24 Hr Dis, 7 MG TD DAILY, (Reported) Omeprazole (Omeprazole) 40 Mg Capsule.dr, 40 MG PO DAILY, (Reported) Prednisone (Prednisone) 20 Mg Tablet, 20 MG PO QAM Tiotropium [place] (Spiriva) 18 Mcg Cap, 1 INHALATION INH DAILY, (Reported) Scheduled PRN Albuterol Sulfate (Proventil Hfa) 108 Mcg/Act Aer, 2 PUFFS INH QID PRN for SOB/WHEEZING, (Reported) Azelastine HCl (Azelastine HCl) 0.15% [place].pump, 2 SPRAY NARES BID PRN for ALLERGIES, (Reported) Docusate Sodium (Stool Softener) 100 Mg Capsule, 100 MG PO BID PRN for CONSTIPATION, (Reported) Melatonin (Melatonin) 10 Mg Capsule, 10 MG PO QHS PRN for SLEEP, (Reported) Nitroglycerin (Nitrostat) 0.4 Mg Tab.subl, 0.4 MG SL NITRO PRN for CHEST PAIN, (Reported) Miscellaneous Medications [Patient Comment] , (Reported) UNABLE TO VERIFY MEDICATIONS WITH PATIENT - MED LIST OBTAINED FROM EXTERNAL MED HX AND PREVIOUS MD VISIT IN APRIL 2019 Allergies Coded Allergies: No Known Allergies (Unverified , 04/16/19) Past Medical History Medical History 1. Chronic obstructive pulmonary disease 2. Depression 3. Allergies 4. History of tubular adenoma 5. History of serrated polyp Surgical History Surgical History 1. Colonoscopy with polyps 2. Left upper lung lobe transbronchial biopsy 3. ORIF of the right intertrochanteric and subtrochanteric femur 4. Left breast biopsy 5. Bronchoscopy 6. Bronchioloalveolar lavage Family History Family History Father: , 31, juvenile diabetes Mother: , 59, myocardial infarction Siblings: - Sister: , respiratory failure - Sister: Alive, alpha-1 antitrypsin deficiency - Brothers x3: Healthy - Sisters x8: Healthy Son: Alive, healthy Social History * Smoker: current smoker Alcohol: Denies Drugs: denies A-FIB/CHADSVASC A-FIB History Current/History of A-Fib/PAF?: No Current PO Anticoag Therapy: No Review of Systems Constitutional: Reports: Other (unable to obtain due to somnolence) Physical Examination General Exam: Positive: Other (somnolent) Eye Exam: Positive: PERRLA, Conjunctiva & lids normal ENT Exam: Positive: Atraumatic Neck Exam: Positive: Supple; Negative: JVD Heart Exam: Positive: Rate Normal Telemetry: Positive: No significant arrhythmia Abdomen Exam: Positive: Normal bowel sounds Extremity Exam: Positive: Clubbing; Negative: Cyanosis Skin Exam: Positive: Nl turgor and temperature Neuro Exam: Positive: Reflexes 2+ Psych Exam: Positive: Other (somnolent) Vital Signs [id number] Laboratory Data Labs 24H Laboratory Tests 2 07/14/19 15:07: Assessment/Plan Patient is 64 years old female with past medical history end-stage COPD, coronary artery diseases was transferred to the [facility] hospital with generalized weakness. According to records patient was found to have acute hypercarbic respiratory failure, CT chest with contrast showed emphysema of both lungs, severe pleural parenchymal scaring suspicious for infectious process or malignancy. White blood count 10.6, hemoglobin 12.2, glucose level 147, venous blood gas pertinent pH 7.3, CO2 57 oxygen 35. When I saw the patient patient was somnolent, did not answer my questions. Of note, patient is active smoker, 2 L of oxygen is her baseline. Problems (1) Acute respiratory failure with hypercapnia Status: Acute Problem Text: Patient has end-stage COPD Blood gas showed acute on chronic hypercapnia with hypercarbia BiPAP for now Continue to monitor blood gas Continue inhalers Await Covid 19 result Respiratory panel was negative Await blood culture (2) Cavitating mass in left upper lung lobe Onset Date: 11/11/2013 Status: Acute Problem Text: Appreciate/agree with tearer press clipping consult Patient' is active smoker. High risk of malignancy (3) Physical deconditioning Status: Acute Problem Text: Due to multiple comorbidities PT/OT (4) Pneumonia Status: Acute Problem Text: Most likely community-acquired Await Covid test Respiratory panel negative CT chest with contrast showed emphysema of both lungs, severe pleural parenchymal scaring suspicious for infectious process or malignancy I will start levofloxacin IV Blood culture Sputum culture Plan / VTE VTE Prophylaxis Ordered?: Yes GIOVANA MARRERO DO Jul 14, 2019 16:08
[2019-07-14] MEDS ORDERED: SODIUM CHLORIDE 0.9% 1000ML IV SCH (16:15)
[2019-07-14] MEDS ORDERED: VITAD1000T PO (16:15)
[2019-07-14] MEDS ORDERED: LACT10SO3 PO (16:15)
[2019-07-14] MEDS ORDERED: MIRT1TAB16 PO (16:15)
[2019-07-14] MEDS ORDERED: CVS10CAP8 PO (16:15)
[2019-07-14] MEDS ORDERED: NITR4TASL SL (16:15)
[2019-07-14 16:16] LABS: HEMATOCRIT 38.4 % (36.0-47.0); HEMOGLOBIN 11.1 g/dl (12.0-15.5); MEAN CORPUSCULAR HEMOGLOBIN 30.2 pg (27.0-33.0); MEAN CORPUSCULAR HGB CONC 28.9 g/dl (32.0-36.5); MEAN CORPUSCULAR VOLUME 104.3 fl (80.0-96.0); PLATELET COUNT, AUTOMATED 285 10^3/uL (150-450); RED BLOOD COUNT 3.68 10^6/uL (4.00-5.40); WHITE BLOOD COUNT 7.9 10^3/uL (4.0-10.0)
[2019-07-14] MEDS ORDERED: PATIENT COMMENT (16:16)
[2019-07-14 16:25] LABS: ABG BASE EXCESS 21.4 (-2.0-2.0); ABG HCO3 56.7 MEQ/L (22.0-26.0); ABG O2 SATURATION 86.6 % (95.0-99.0); ABG PARTIAL PRESSURE O2 55.5 mmHg (75.0-100.0); ABG STANDARD HCO3 45.5 MEQ/L (22.0-26.0); ABG TOTAL CO2 61.9 MEQ/L (23.0-31.0)
[2019-07-14 16:39] LABS: ABG PARTIAL PRESSURE CO2 170.4 mmHg (35.0-45.0)
[2019-07-14] MEDS ORDERED: NITROGLYCERIN 0.4 MG SUBL TABLET SL PRN (16:45)
[2019-07-14] MEDS ORDERED: DOCUSATE SODIUM 100 MG CAP PO PRN (16:45)
[2019-07-14 16:59] LABS: ALBUMIN 2.9 GM/DL (3.2-5.2); ALT/SGPT 33 U/L (12-78); BILIRUBIN,TOTAL 0.2 MG/DL (0.2-1.0); BLOOD UREA NITROGEN 11 MG/DL (7-18); CALCIUM LEVEL 9.3 MG/DL (8.8-10.2); CARBON DIOXIDE LEVEL 59 MEQ/L (21-32); CHLORIDE LEVEL 90 MEQ/L (98-107); CREATININE FOR GFR 0.31 MG/DL (0.55-1.30); GLOMERULAR FILTRATION RATE > 60.0 (>45); GLUCOSE, FASTING 125 MG/DL (70-100); POTASSIUM SERUM 5.1 MEQ/L (3.5-5.1); SODIUM LEVEL 138 MEQ/L (136-145); TOTAL PROTEIN 6.4 GM/DL (6.4-8.2)
[2019-07-14] MEDS ORDERED: IPRATROPIUM 0.5MG/ALBUTEROL 2.5MG INH SOL UD 3ML (DUONEB)(J7620) NEB ONE (17:00)
[2019-07-14] MEDS ORDERED: methylPREDNISolone INJ 125 MG/2 ML VIAL (J2930) IV SCH (17:00)
[2019-07-14 17:28] LABS: ABG BASE EXCESS 19.3 (-2.0-2.0); ABG HCO3 53.7 MEQ/L (22.0-26.0); ABG O2 SATURATION 98.3 % (95.0-99.0); ABG PARTIAL PRESSURE O2 102.5 mmHg (75.0-100.0); ABG STANDARD HCO3 43.5 MEQ/L (22.0-26.0); ABG TOTAL CO2 58.5 MEQ/L (23.0-31.0)
[2019-07-14 17:30] LABS: ABG pH (ARTERIAL) 7.155 UNITS (7.350-7.450)
[2019-07-14] MEDS: IPRATROPIUM 0.5MG/ALBUTEROL 2.5MG INH SOL UD 3ML (DUONEB)(J7620) NEB SCH (18:52)
[2019-07-14] MEDS: LevoFLOXacin IV 750 MG in IV 1 EA IV SCH (20:30)
[2019-07-14] MEDS: HEPARIN SOD (PORCINE) 5000UNITS/ML VIAL (J1644 PER 1000UNITS) SC SCH (20:30)
[2019-07-14 20:48] LABS: ABG BASE EXCESS 22.7 (-2.0-2.0); ABG O2 SATURATION 97.8 % (95.0-99.0); ABG PARTIAL PRESSURE O2 96.4 mmHg (75.0-100.0); ABG STANDARD HCO3 47.4 MEQ/L (22.0-26.0); ABG TOTAL CO2 60.1 MEQ/L (23.0-31.0)
[2019-07-14 20:52] LABS: ABG PARTIAL PRESSURE CO2 134.9 mmHg (35.0-45.0); ABG pH (ARTERIAL) 7.236 UNITS (7.350-7.450)
[2019-07-14] MEDS: ADVAIR HFA 230/21MCG INHALER INH SCH (21:00)
--- NOTE | 2019-07-14 21:09 | CR ---
DATE OF CONSULTATION: 07/14/2019 PULMONARY CONSULT NOTE CHIEF COMPLAINT: Shortness of breath and altered mental status. HISTORY OF PRESENT ILLNESS: Miss Watkins is a 64-year-old female with end-stage very severe chronic obstructive pulmonary disease (COPD) secondary to emphysema (last spirometry from 12-02-18 with an FEV-1 of 0.36 and then 14% and an FVC of 1.03, 31%) with ongoing tobacco use, with chronic hypoxemic respiratory failure, on two liters nasal cannula oxygen chronically, who was sent from an outside hospital with complaints of worsening weakness and confusion. History was obtained from the chart and other collateral information as the patient is unable to provide a history currently. The patient had reportedly been having more difficulty with weakness and decreased oral intake, as well as with weight loss. As per her sister, the patient was also having thrashing and twitching movements at night time, which was causing her to have dislodgement of her nasal cannula oxygen and with subsequent desaturation noted. The patient had been ordered as an outpatient for an ABG as she has a previous history of chronic hypercapnic respiratory failure with a baseline pCO2 on her previous admission in 2018 in the high 70s and 80s. At the outside hospital, the patient reportedly had a venous blood gas with a pH of 7.3 and a pCO2 of 57, however, her serum bicarbonate was in the 50s, which appears to be her new chronic baseline as per her previous admission. Suspect her venous blood gas was likely an error. Upon transfer to our medical intensive care unit (ICU), the patient was noted to be somnolent with very diminished air movement, as well as severe muscle twitching and spasms. She had a repeat ABG done upon admission, which showed a pH of 7.140 and a pCO2 of 170.4 with a pO2 of 55.5 on the two liters cannula. The patient was placed on bilevel positive airway pressure (BiPAP). She initially required high settings as she was having difficulty with ventilation. Her BiPAP settings were adjusted to titrate for a goal tidal volume of 350-450 mL. With the BiPAP, the patient was somewhat more responsive and is opening eyes, although she is having difficulty answering questions. She continues to have some twitching, although this appears slightly improved. The patient was also ordered for a stat nebulizer treatment as well as IV steroids. PAST MEDICAL AND SURGICAL HISTORY: End-stage COPD with chronic hypoxemic and hypercarbic respiratory failure. Depression. Allergies. History of tubular adenoma. History of serrated polyp. Left upper lobe transbronchial biopsy. Open reduction internal fixation (ORIF) of the right intertrochanteric and subtrochanteric femur. Left breast biopsy. HOME MEDICATIONS: - Tylenol PM as needed - albuterol as needed - atorvastatin - azelastine nasal spray - Wellbutrin - vitamin D3 - Breo - lidocaine patch - lisinopril - mirtazapine - multivitamin - nicotine patch - nystatin - omeprazole - Spiriva ALLERGIES: No known drug allergies. FAMILY HISTORY: Mother history of myocardial infarction ([place]). Father with history of diabetes. Sisters - one with a history of alpha-1 antitrypsin deficiency and another with a history of respiratory failure. SOCIAL HISTORY: Current active smoker of a few cigarettes a day. PHYSICAL EXAM: Temperature 98.8, pulse 121, respirations 28, blood pressure 129/67, oxygen saturation (O2 sat) 82% on BiPAP at 40% FiO2. General: The patient is a cachectic female, is lying in bed with a noninvasive mechanical ventilator in place. She has significant twitching and muscle spasms and contractures. She is unable to speak and is using supraclavicular accessory muscles for respiration. HEENT is normocephalic, atraumatic. Pupils are reactive to light bilaterally. There is some mildly dry mucous membranes. Neck is supple. Trachea is midline. No palpable adenopathy. No jugular venous distention (JVD). Cardiovascular: Distant heart sounds, tachycardiac, regular rate and rhythm, likely normal S1, S2. Unable to appreciate murmurs. There is increased AP diameter and kyphosis. Lungs: Very diminished air entry bilaterally with a very low-pitched faint expiratory wheeze and prolonged expiratory phase. There is some accessory muscle use for respiration. Abdomen is soft, nontender, nondistended. No masses palpated. Extremities: There is no significant lower extremity noted bilaterally. There is some trace clubbing of the fingernails and nicotine stained fingers. No cyanosis. LABORATORY DATA: WBC 7.9, hemoglobin 11.1, platelets 285. Chemistry: Sodium is 138, potassium 5.1, chloride is 90, bicarbonate is 59, BUN 11, creatinine 0.31, glucose is 125, lactic acid 0.5, AST, ALT within normal limits. Total protein 6.4, albumin is 2.9. ABG on admission: 7.140, pCO2 of 170.4, pO2 of 55.5. Repeat ABG 30 minutes later: pH of 7.155, pCO2 156, pO2 of 102.5 . Micro: COVID-19 PCR negative. IMAGING: CT chest from outside hospital 07/14/2019 showed kyphoscoliosis with severe panlobular emphysema, and in particular, apical bullous changes with possible cavitary lesion in the right upper lobe with some pleural parenchymal scarring and a possible questionable aspergilloma in the right upper lobe cavity. In the right upper lobe periphery, there are some patchy areas of consolidation and a noncalcified nodule in the right lower lobe. There is no significant mediastinal adenopathy. No pleural effusions. ASSESSMENT AND PLAN: Ms. Watkins is a 64-year female with severe end-stage chronic obstructive pulmonary disease, current active smoker, history of chronic hypoxemic and hypercarbic respiratory failure who presented from an outside hospital with complaints of increasing lethargy and altered mental status. The patient was found to have acute on chronic hypoxemic and hypercarbic respiratory failure. It is unclear based on her history, as the patient is unable to provide one currently, if she had any inciting factors for her acute decompensation. Given her end-stage COPD, however, and her severe hypercarbic respiratory failure with previous baseline pCO2 in the 70-80s, any small change in her respiratory status will likely cause severe change in her pCO2 and decompensation. Her CT chest from the outside hospital showed mostly chronic changes. However, there is a possible patchy opacity in the right upper lobe periphery suggestive of possible infectious etiology. She had no evidence of leukocytosis on her labs here, but on the outside labs, she had mild leukocytosis. Patient likely with acute COPD exacerbation contributing to her acute decompensation. Acute on chronic hypercarbic respiratory failure in the setting of end-stage COPD with possible acute exacerbation. - The patient is placed on BiPAP. Her settings have been adjusted to try to maintain a goal tidal volume based on her ideal body weight of 350-450. The patient is currently on BiPAP settings 11 over 6 with a respiratory rate of 16 and an FiO2 of 40%. Will followup repeat ABG in 2-1/2 hours to continue monitor and make adjustments as needed. Would continue to titrate her O2 sat to maintain an O2 sat of 88-92%, preferably close to 88% given her severe chronic hypercarbia. - Will continue with nebulizer treatments with DuoNebs every 6 hours. - Would hold her home inhalers of Advair and Spiriva for now and can likely restart in a few days. - Can continue with Solu-Medrol; will decrease her from 80 mg every 8 hours to 40 mg every 8 hours. - Would continue the rest of home medications as per the primary team. The patient was noted on her medication list to have Tylenol PM, would hold, however, given her hypercarbic respiratory failure. - The patient has evidence of metabolic alkalosis, which appears to be worsened from her chronic metabolic alkalosis, which is likely a compensation for her worsening respiratory acidemia. Suspect her baseline pCO2 now is likely higher than compared to her previous admission. - The patient was given IV fluid bolus. Would give her 500 mL of normal saline and would continue to monitor and give as needed IV bolus fluid as needed. - Can continue with Levaquin for acute COPD exacerbation. The patient has a sputum culture ordered and blood cultures which are pending. Deep vein thrombosis (DVT) prophylaxis: Heparin. CODE STATUS: DO NOT RESUSCITATE/DO NOT INTUBATE (DNR/DNI) with a trial of noninvasive ventilation Total critical care time spent not including any procedures approx 2hrs MTDD
[2019-07-14 23:25] LABS: BLOOD UREA NITROGEN 12 MG/DL (7-18); CALCIUM LEVEL 9.4 MG/DL (8.8-10.2); CARBON DIOXIDE LEVEL 51 MEQ/L (21-32); CHLORIDE LEVEL 88 MEQ/L (98-107); CPK CREATINE PHOSPHOKINASE 103 U/L (26-192); CREATININE FOR GFR 0.36 MG/DL (0.55-1.30); GLOMERULAR FILTRATION RATE > 60.0 (>45); GLUCOSE, FASTING 124 MG/DL (70-100); MAGNESIUM LEVEL 1.5 MG/DL (1.8-2.4); MB/CK RELATIVE INDEX 4.85 (< OR =4); POTASSIUM SERUM 4.4 MEQ/L (3.5-5.1); SODIUM LEVEL 136 MEQ/L (136-145); TROPONIN I < 0.02 NG/ML (< 0.10)
[2019-07-14] MEDS ORDERED: NS 500 ML IV ONE (23:30)
[2019-07-15] VITALS (19 sets, daily range): BP systolic 93–130; BP diastolic 56–86; O2SAT 96–98
[2019-07-15] MEDS: methylPREDNISolone INJ 40 MG/1 ML VIAL (J2920) IV SCH ×3 (00:12→17:16)
[2019-07-15] MEDS: IPRATROPIUM 0.5MG/ALBUTEROL 2.5MG INH SOL UD 3ML (DUONEB)(J7620) NEB SCH ×4 (00:15→19:44)
[2019-07-15 05:42] LABS: ABG BASE EXCESS 10.1 (-2.0-2.0); ABG HCO3 39.6 MEQ/L (22.0-26.0); ABG O2 SATURATION 99.3 % (95.0-99.0); ABG PARTIAL PRESSURE O2 168.7 mmHg (75.0-100.0); ABG STANDARD HCO3 33.9 MEQ/L (22.0-26.0); ABG TOTAL CO2 42.2 MEQ/L (23.0-31.0); ABG pH (ARTERIAL) 7.284 UNITS (7.350-7.450)
[2019-07-15 05:44] LABS: ABG PARTIAL PRESSURE CO2 85.4 mmHg (35.0-45.0)
[2019-07-15 06:22] LABS: HEMATOCRIT 38.5 % (36.0-47.0); HEMOGLOBIN 10.8 g/dl (12.0-15.5); MEAN CORPUSCULAR HEMOGLOBIN 29.3 pg (27.0-33.0); MEAN CORPUSCULAR HGB CONC 28.1 g/dl (32.0-36.5); MEAN CORPUSCULAR VOLUME 104.3 fl (80.0-96.0); PLATELET COUNT, AUTOMATED 319 10^3/uL (150-450); RED BLOOD COUNT 3.69 10^6/uL (4.00-5.40)
[2019-07-15 07:05] LABS: BLOOD UREA NITROGEN 14 MG/DL (7-18); CALCIUM LEVEL 9.4 MG/DL (8.8-10.2); CARBON DIOXIDE LEVEL 50 MEQ/L (21-32); CHLORIDE LEVEL 90 MEQ/L (98-107); CREATININE FOR GFR 0.29 MG/DL (0.55-1.30); GLOMERULAR FILTRATION RATE > 60.0 (>45); GLUCOSE, FASTING 99 MG/DL (70-100); MAGNESIUM LEVEL 2.1 MG/DL (1.8-2.4); POTASSIUM SERUM 4.8 MEQ/L (3.5-5.1); SODIUM LEVEL 137 MEQ/L (136-145)
[2019-07-15] MEDS: TIOTROPIUM INHALER/CAPSULE (SPIRIVA) INH SCH (07:51)
[2019-07-15] MEDS: ADVAIR HFA 230/21MCG INHALER INH SCH ×2 (07:52→19:44)
[2019-07-15] MEDS: NICOTINE 7 MG/24 HR TRANSDERMAL TD SCH (09:00)
[2019-07-15] MEDS: ATORVASTATIN 20 MG TAB PO SCH (09:00)
[2019-07-15] MEDS: OMEPRAZOLE 20 MG CAP PO SCH (09:00)
[2019-07-15] MEDS ORDERED: PANTOPRAZOLE 40MG TAB (PROTONIX) PO SCH (09:00)
[2019-07-15] MEDS: buPROPion **XL** TABLET 150MG (WELLBUTRIN XL) PO SCH (09:00)
--- NOTE | 2019-07-15 09:26 | ECGEPIP ---
[facility] Test Date: 2019-07-14 Pat Name: NOHEMI GALVEZ Department: Room: [place] [address] Gender: Female [employer]: PERFECTO : 1955 Requested By: BRANDI Cortés Order Number: [id number] Reading MD: Marion Ralph Measurements Intervals [place] Rate: 122 P: 86 SD: 133 QRS: -76 QRSD: 94 T: 85 QT: 317 QTc: 453 Interpretive Statements Much artifact confounds tracing analysis Normal sinus rhythm Evidence for prior inferior and anterior wall myocardial infarction Diffuse repolarization abnormalities Probably little change since 04/01/2017, accounting for artifact Electronically Signed on 07-15-2019 9:26:14 EDT by Marino Ralph
[2019-07-15] MEDS: HEPARIN SOD (PORCINE) 5000UNITS/ML VIAL (J1644 PER 1000UNITS) SC SCH ×2 (09:33→20:57)
[2019-07-15 11:38] LABS: ABG BASE EXCESS 24.1 (-2.0-2.0); ABG HCO3 53.4 MEQ/L (22.0-26.0); ABG O2 SATURATION 95.6 % (95.0-99.0); ABG PARTIAL PRESSURE O2 72.3 mmHg (75.0-100.0); ABG STANDARD HCO3 48.8 MEQ/L (22.0-26.0); ABG TOTAL CO2 56.1 MEQ/L (23.0-31.0)
[2019-07-15 11:41] LABS: ABG PARTIAL PRESSURE CO2 88.2 mmHg (35.0-45.0)
[2019-07-15] MEDS ORDERED: NS 500 ML IV ONE (12:00)
--- NOTE | 2019-07-15 12:37 | CCN ---
DATE OF SERVICE: 07/15/2019 SUBJECTIVE: The patient was seen and examined this morning during bedside rounds. The patient was kept on BiPAP overnight and this morning her ABG has continued to slowly. The patient's mental status has improved and she appears to be at her baseline. She is awake, alert and conversing appropriately. The muscle spasms and twitching have also resolved. The patient currently states that she does feel her breathing has improved, but she does continue to have some shortness of breath and difficulty with breathing. She denies having any chest pain currently. She has not been having any significant cough. She has not had any fevers or chills overnight. Denies any abdominal pain. No nausea or vomiting. PHYSICAL EXAM: Temperature 98.5, pulse 118, respirations 34, blood pressure 121/867, oxygen saturation (O2 sat) 97% on 40% FiO2. General: The patient is a cachectic female who is lying in bed on BiPAP. Her muscle spasms have improved and the patient's mental status has improved. She is awake and alert and able to converse appropriately. She does have some accessory respiratory muscle use still. HEENT: Normocephalic, atraumatic. Pupils are reactive to light bilaterally. There is mildly dry mucous membranes noted. Neck is supple. Trachea is midline. No palpable adenopathy. No jugular venous distention (JVD). Cardiovascular: Distant heart sounds, tachycardiac, regular rate and rhythm, unable to appreciate murmurs. There is increased AP diameter and kyphosis. Lungs: Diminished air entry bilaterally with significant prolongation of the expiratory phase. There is some accessory muscle use for respiration. Abdomen is soft, nontender, nondistended. No masses palpated. Extremities: There is no significant lower extremity noted bilaterally. There is some trace clubbing of the fingernails and nicotine stained fingers, but no cyanosis. LABORATORY DATA: WBC 6.0, hemoglobin 10.8, platelets 319. Chemistry: Sodium is 137, potassium 4.8, chloride is 90, bicarbonate is 51, BUN 14, creatinine 0.29, glucose is 99. ABG: pH 7.284, pCO2 of 85.4, pO2 of 168.7. ASSESSMENT AND PLAN: Ms. Watkins is a 64-year female with severe end-stage chronic obstructive pulmonary disease with chronic hypoxemic and hypercarbic respiratory failure who is a current active smoker who presented from an outside hospital with increasing lethargy, altered mental status and shortness of breath. The patient was found to have acute on chronic hypoxemic and hypercarbic respiratory failure, likely secondary to an acute chronic obstructive pulmonary disease exacerbation with questionable pneumonia. Acute on chronic hypercarbic respiratory failure in the setting of end-stage COPD with possible acute exacerbation and questionable infectious etiology. - The patient was placed on BiPAP. Overnight, her BiPAP settings were adjusted to 14/7. This morning, her ABG has been continuing to improve slowly. Her BiPAP settings were adjusted again to settings of 14/5 with respiratory rate of 15 and her FiO2 was decreased to 30%. The patient was ordered for repeat ABG later this morning. If there is improvement in her ABG and she can tolerate, will give her a brief break off of the BiPAP. - Will continue to titrate FiO2 to maintain an O2 sat of 88-92%, preferably closer to 88% given her severe chronic hypercarbia. - When off of BiPAP, she can be on nasal cannula anywhere from 1-2 liters a minute based on her O2 sats. - Continue with nebulizer treatments with DuoNebs every 6 hours. - Continue with Solu--Medrol 40 mg every 8 hours. - Patient's ABG shows evidence of chronic respiratory acidosis with an additional metabolic alkalosis. She was given some IV fluid boluses yesterday and will give her another 500 mL normal saline bolus. - Can continue with Levaquin for acute COPD exacerbation and possible pneumonia. She has sputum cultures which are ordered and blood cultures which are pending. Her COVID-19 testing was negative on admission. - Can continue to hold her home inhalers at this time and can restart Advair and Spiriva once off of BiPAP during the day. - Patient will likely need to be discharged with home BiPAP for her chronic hypercarbic respiratory failure secondary to COPD. Deep vein thrombosis (DVT) prophylaxis: Heparin. CODE STATUS: DO NOT RESUSCITATE/DO NOT INTUBATE (DNR/DNI). TOTAL CRITICAL CARE TIME SPENT, NOT INCLUDING PROCEDURES: Approximately 35 minutes. [facility]
[2019-07-15] MEDS: LISINOPRIL *2.5 MG* TAB PO SCH (13:49)
--- NOTE | 2019-07-15 16:45 | IPNPDOC ---
Text Note Date of Service The patient was seen on 07/15/19. NOTE Subjective: Patient is more alert in the morning, continues breathing via BiPAP. Objective:VITAL SIGNS: Please see below. GENERAL: Cachectic female breaking via BiPAP HEENT: NCAT, anicteric sclera, MARIO NECK: supple, no JVD CARDIOVASCULAR EXAMINATION: NS1S2, tachycardic at a rate 105 RESPIRATORY EXAMINATION: Bilateral rhonchi, kyphosis ABDOMINAL EXAMINATION: positive bowel sounds x 4, NT EXTREMITIES: no cyanosis, clubbing, edema SKIN: warm, no rashes. NEUROLOGICAL EXAMINATION: AAO x 3, no motor/sensory deficits Assessment/Plan Patient is 64 years old female with past medical history end-stage COPD, coronary artery diseases was transferred to the [facility] hospital with generalized weakness. According to records patient was found to have acute hypercarbic respiratory failure, CT chest with contrast showed emphysema of both lungs, severe pleural parenchymal scaring suspicious for infectious process or malignancy. White blood count 10.6, hemoglobin 12.2, glucose level 147, venous blood gas pertinent pH 7.3, CO2 57 oxygen 35. When I saw the patient patient was somnolent, did not answer my questions. Of note, patient is active smoker, 2 L of oxygen is her baseline. Problems (1) Acute respiratory failure with hypercapnia Patient has end-stage COPD Blood gas showed acute on chronic hypercapnia with hypercarbia Continue treatment with BiPAP given persistent hypercarbia and hypoxemia Continue to monitor blood gas Continue inhalers Covid 19 result negative Respiratory panel was negative Continue Solu-Medrol 40 mg every 6 (2) Cavitating mass in left upper lung lobe Patient' is active smoker. High risk of malignancy Follow-up with senior mortgage underwriter (3) Physical deconditioning Due to multiple comorbidities PT/OT (4) Pneumonia Most likely community-acquired CT chest with contrast showed emphysema of both lungs, severe pleural parenchymal scaring suspicious for infectious process or malignancy Continue with levofloxacin IV Blood culture negative Await Sputum culture Metabolic encephalopathy Secondary to acute hypercapnic hypoxemic respiratory failure on the admission Patient received treatment with BiPAP. Cachexia Bitemporal wasting, BMI 17.9 Full appliance tester assessment VS,Fishbone, I+O VS, Fishbone, I+O Laboratory Tests 07/14/19 22:35 07/15/19 05:58 Vital Signs Date Time Temp Pulse Resp B/P (MAP) Pulse Ox O2 Delivery O2 Flow Rate FiO2 07/15/19 16:00 98.2 127 20 105/63 (77) 91 NIPPV (BIPAP/CPAP) 35 07/14/19 16:00 2.0 I&O- Last 24 Hours up to 6 AM 07/15/19 06:00 Intake Total 1150 ml Output Total 700 ml Balance 450 ml GIOVANA MARRERO DO Jul 15, 2019 16:45
[2019-07-15 17:06] LABS: MEAN CORPUSCULAR HEMOGLOBIN 29.7 pg (27.0-33.0); MEAN CORPUSCULAR HGB CONC 28.9 g/dl (32.0-36.5); MEAN CORPUSCULAR VOLUME 102.7 fl (80.0-96.0); PLATELET COUNT, AUTOMATED 314 10^3/uL (150-450); WHITE BLOOD COUNT 7.2 10^3/uL (4.0-10.0)
[2019-07-15] MEDS: LevoFLOXacin IV 750 MG in IV 1 EA IV SCH (20:14)
[2019-07-15 22:45] LABS: HEMATOCRIT 36.1 % (36.0-47.0); HEMOGLOBIN 10.5 g/dl (12.0-15.5); MEAN CORPUSCULAR HEMOGLOBIN 29.7 pg (27.0-33.0); MEAN CORPUSCULAR HGB CONC 29.1 g/dl (32.0-36.5); PLATELET COUNT, AUTOMATED 325 10^3/uL (150-450); RED BLOOD COUNT 3.54 10^6/uL (4.00-5.40); WHITE BLOOD COUNT 6.9 10^3/uL (4.0-10.0)
[2019-07-16] VITALS (9 sets, daily range): BP systolic 99–117; BP diastolic 58–73; O2SAT 94–96
[2019-07-16] MEDS: IPRATROPIUM 0.5MG/ALBUTEROL 2.5MG INH SOL UD 3ML (DUONEB)(J7620) NEB SCH ×4 (01:46→19:44)
[2019-07-16] MEDS: methylPREDNISolone INJ 40 MG/1 ML VIAL (J2920) IV SCH ×3 (01:54→17:20)
[2019-07-16 05:03] LABS: HEMATOCRIT 36.9 % (36.0-47.0); HEMOGLOBIN 10.7 g/dl (12.0-15.5); MEAN CORPUSCULAR HEMOGLOBIN 29.8 pg (27.0-33.0); MEAN CORPUSCULAR VOLUME 102.8 fl (80.0-96.0); PLATELET COUNT, AUTOMATED 315 10^3/uL (150-450); RED BLOOD COUNT 3.59 10^6/uL (4.00-5.40); WHITE BLOOD COUNT 5.9 10^3/uL (4.0-10.0)
[2019-07-16 05:50] LABS: BLOOD UREA NITROGEN 26 MG/DL (7-18); CALCIUM LEVEL 9.8 MG/DL (8.8-10.2); CARBON DIOXIDE LEVEL 48 MEQ/L (21-32); CHLORIDE LEVEL 88 MEQ/L (98-107); CREATININE FOR GFR 0.34 MG/DL (0.55-1.30); GLOMERULAR FILTRATION RATE > 60.0 (>45); GLUCOSE, FASTING 84 MG/DL (70-100); MAGNESIUM LEVEL 2.2 MG/DL (1.8-2.4); POTASSIUM SERUM 4.3 MEQ/L (3.5-5.1); SODIUM LEVEL 136 MEQ/L (136-145)
[2019-07-16] MEDS: ADVAIR HFA 230/21MCG INHALER INH SCH (07:40)
[2019-07-16] MEDS: TIOTROPIUM INHALER/CAPSULE (SPIRIVA) INH SCH (07:40)
[2019-07-16 08:05] LABS: ABG BASE EXCESS 17.6 (-2.0-2.0); ABG HCO3 47.2 MEQ/L (22.0-26.0); ABG O2 SATURATION 96.2 % (95.0-99.0); ABG PARTIAL PRESSURE O2 80.6 mmHg (75.0-100.0); ABG STANDARD HCO3 41.6 MEQ/L (22.0-26.0); ABG pH (ARTERIAL) 7.336 UNITS (7.350-7.450)
[2019-07-16 08:09] LABS: ABG PARTIAL PRESSURE CO2 90.4 mmHg (35.0-45.0)
[2019-07-16] MEDS ORDERED: NS 500 ML IV ONE (09:00)
[2019-07-16] MEDS: D5W/0.45% SODIUM CHLORIDE 1,000 ML IV SCH ×2 (09:50→20:05)
[2019-07-16] MEDS: HEPARIN SOD (PORCINE) 5000UNITS/ML VIAL (J1644 PER 1000UNITS) SC SCH ×2 (10:59→20:05)
[2019-07-16] MEDS: buPROPion **XL** TABLET 150MG (WELLBUTRIN XL) PO SCH (10:59)
[2019-07-16] MEDS: ATORVASTATIN 20 MG TAB PO SCH (11:00)
[2019-07-16] MEDS: OMEPRAZOLE 20 MG CAP PO SCH (11:00)
[2019-07-16] MEDS: NICOTINE 7 MG/24 HR TRANSDERMAL TD SCH (11:01)
[2019-07-16] MEDS: LISINOPRIL *2.5 MG* TAB PO SCH (11:01)
[2019-07-16 11:02] LABS: HEMATOCRIT 37.4 % (36.0-47.0); MEAN CORPUSCULAR HGB CONC 29.4 g/dl (32.0-36.5); MEAN CORPUSCULAR VOLUME 101.9 fl (80.0-96.0); PLATELET COUNT, AUTOMATED 316 10^3/uL (150-450); RED BLOOD COUNT 3.67 10^6/uL (4.00-5.40); WHITE BLOOD COUNT 6.2 10^3/uL (4.0-10.0)
--- NOTE | 2019-07-16 13:27 | CCN ---
DATE: 07/16/2019 CRITICAL CARE PROGRESS NOTE: The patient was seen and examined this morning during bedside rounds. The patient was able to tolerate being off of bilevel positive airway pressure (BiPAP) for a brief period of time yesterday. She did have some desaturation and was placed back on BiPAP. This morning, she is alert and awake, following commands and conversing appropriately. She was able to weaned off of BiPAP to nasal cannula oxygen and has been requiring 1-2 liters a minute at rest. The patient mentions now that at home she was checking her pulse oximeter and was maintaining her oxygen saturations usually in the 97% particularly at rest. She was wearing nasal cannula oxygen around 3 liters a minute. She did also continue to smoke cigarettes. She was smoking cigarettes while wearing her nasal cannula oxygen supplementation it seems. She states she has difficulty with smoking cessation as her is also smoking cigarettes and does occasionally smoke cigarettes in the home, particularly with the colder weather. This morning, she states her breathing has improved but she does still report some shortness of breath. She denies any significant cough currently, and has not had any fevers or chills overnight. PHYSICAL EXAMINATION: Maximum temperature (Tmax) 99.6, pulse 119, respirations 25, blood pressure 115/65, oxygen saturation 91-95% on 35% FiO2. Ins 710 mL, out 720 mL. General: The patient is a cachectic female who is lying in bed off of BiPAP. She has nasal cannula oxygen supplementation in place. She has improvement in the previous muscle spasms and twitching. She is able to speak in short sentences, but does have some accessory respiratory muscle use. HEENT: Normocephalic, atraumatic. Pupils react to light bilaterally. There is some mildly dry mucous membranes noted. Neck is supple. Trachea is midline. No palpable adenopathy. No jugular venous distention (JVD). Cardiovascular: Distant heart sounds, tachycardic, regular rate and rhythm. Unable to appreciate any murmurs. There is increased AP diameter and kyphosis. Lungs: Diminished air entry bilaterally with expiratory prolongation and mild crackles at the bases. No significant wheezing or rhonchi noted. Abdomen is soft, nontender, nondistended. No mass palpated. Extremities: There is no significant lower extremity edema noted bilaterally. There is some trace clubbing of the fingernails and nicotine stained fingers, but no cyanosis. LABORATORY DATA: WBC 5.9, hemoglobin 10.7, platelets are 315. Chemistry: Sodium is 136, potassium 4.3, chloride is 88, bicarbonate is 48, BUN 26, creatinine is 0.34, glucose 84. ABG pH 7.336, pCO2 of 90.4, pO2 of 80.6. ASSESSMENT AND PLAN: Ms. Watkins is a 64-year-old female with severe end-stage chronic obstructive pulmonary disease (COPD) with chronic hypoxemic and hypercarbic respiratory failure who is a current active smoker and presented as a transfer from an outside hospital with increasing lethargy and shortness breath. The patient was found have acute on chronic hypoxemic, hypercarbic respiratory failure likely secondary to an acute COPD exacerbation with questionable pneumonia. Acute on chronic hypercarbic respiratory failure in setting of end-stage COPD with possible acute exacerbation and questionable infectious etiology. - The patient has been improving in terms of her acute hypercarbic respiratory failure. She was able to be weaned off of BiPAP today to nasal cannula oxygen, which she has been tolerating. - Will continue her on BiPAP with settings of 14/5, pressure rate of 15 and FiO2 of 30% - Will continue the patient on BiPAP at night, with naps and with any respiratory distress. - Will continue her on nasal cannula oxygen when she is off BiPAP and will titrate to maintain an oxygen saturation at 88-92%, preferably 88% given her severe chronic hypercarbia. The patient was also educated about the importance of not over oxygenating and that her goal oxygen saturation at home when she checks her pulse oximeter should be 88-92%. She was also educated and counseled on not smoking cigarettes while wearing her nasal cannula oxygen supplementation. - Will continue nebulizer treatments with DuoNebs every 6 hours. - Continue Solu-Medrol 40 mg every 8 hours and will continue with a slow taper with clinical improvement. - The patient does have some metabolic alkalosis in addition to the compensation for her chronic respiratory acidosis. She was given IV fluid bolus yesterday and will give additional 500 mL normal saline bolus and will start her on gentle hydration with D5-1/2 normal saline (NS) at 70 mL/h until she is tolerating her oral better. - Will advance diet as tolerated. - Will continue with Levaquin for acute COPD exacerbation and possible pneumonia. - Will hold her home inhalers of Advair and Spiriva and will restart prior to discharge. - The patient will likely need to be discharged with a home noninvasive positive pressure ventilator for her chronic hypercarbic respiratory failure. Deep venous thrombosis (DVT) prophylax, heparin. CODE STATUS: DO NOT RESUSCITATE, DO NOT INTUBATE. Total critical care time spent not including any procedures approximately 35 minutes. SUSAN
--- NOTE | 2019-07-16 16:32 | IPNPDOC ---
Text Note Date of Service The patient was seen on 07/16/19. NOTE Subjective: Patient is more alert in the morning, patient breathing via nasal cannula on 3 L of oxygen. Patient stated that she feels much better today. Objective:VITAL SIGNS: Please see below. GENERAL: Cachectic female breaking via BiPAP HEENT: NCAT, anicteric sclera, MARIO NECK: supple, no JVD CARDIOVASCULAR EXAMINATION: NS1S2, tachycardic at a rate 105 RESPIRATORY EXAMINATION: Diminished lung sounds kyphosis ABDOMINAL EXAMINATION: positive bowel sounds x 4, NT EXTREMITIES: no cyanosis, clubbing, edema SKIN: warm, no rashes. NEUROLOGICAL EXAMINATION: AAO x 3, no motor/sensory deficits Assessment/Plan Patient is 64 years old female with past medical history end-stage COPD, coronary artery diseases was transferred to the [facility] hospital with generalized weakness. According to records patient was found to have acute hypercarbic respiratory failure, CT chest with contrast showed emphysema of both lungs, severe pleural parenchymal scaring suspicious for infectious process or malignancy. White blood count 10.6, hemoglobin 12.2, glucose level 147, venous blood gas pertinent pH 7.3, CO2 57 oxygen 35. When I saw the patient patient was somnolent, did not answer my questions. Of note, patient is active smoker, 2 L of oxygen is her baseline. During hospital stay patient received treatment with BiPAP. For pneumonia patient received treatment with levofloxacin, inhalers and steroids. Problems (1) Acute respiratory failure with hypercapnia Patient has end-stage COPD Blood gas showed acute on chronic hypercapnia with hypercarbia on admission On 07/16/19 She was able to be weaned off of BiPAP today to nasal cannula oxygen, which she has been tolerating. 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 High risk of malignancy Follow-up with trust advisor (3) Physical deconditioning Due to multiple comorbidities PT/OT (4) Pneumonia Most likely community-acquired CT chest with contrast showed emphysema of both lungs, severe pleural parenchymal scaring suspicious for infectious process or malignancy Continue with levofloxacin IV Blood culture negative Await Sputum culture Metabolic encephalopathy Resolved on 07/16/19 Secondary to acute hypercapnic hypoxemic respiratory failure on the admission Patient received treatment with BiPAP. Cachexia Bitemporal wasting, BMI 17.9 Full audit lead assessment VS,Yesica, I+O VS, Sureshe, I+O Laboratory Tests 07/15/19 16:55 07/15/19 22:18 07/16/19 04:38 07/16/19 10:49 Vital Signs Date Time Temp Pulse Resp B/P (MAP) Pulse Ox O2 Delivery O2 Flow Rate FiO2 07/16/19 12:00 98.0 116 22 116/73 (87) 93 Nasal Cannula 3.0 07/16/19 08:00 35 I&O- Last 24 Hours up to 6 AM 07/16/19 06:00 Intake Total 270 ml Output Total 695 ml Balance -425 ml GIOVANA MARRERO DO Jul 16, 2019 16:32
[2019-07-16 17:20] LABS: HEMATOCRIT 37.3 % (36.0-47.0); HEMOGLOBIN 10.8 g/dl (12.0-15.5); MEAN CORPUSCULAR HEMOGLOBIN 29.3 pg (27.0-33.0); MEAN CORPUSCULAR VOLUME 101.1 fl (80.0-96.0); PLATELET COUNT, AUTOMATED 316 10^3/uL (150-450); RED BLOOD COUNT 3.69 10^6/uL (4.00-5.40); WHITE BLOOD COUNT 7.2 10^3/uL (4.0-10.0)
[2019-07-16] MEDS: LevoFLOXacin IV 750 MG in IV 1 EA IV SCH (20:05)
[2019-07-17] VITALS (10 sets, daily range): BP systolic 95–122; BP diastolic 64–87; O2SAT 94
[2019-07-17] MEDS: IPRATROPIUM 0.5MG/ALBUTEROL 2.5MG INH SOL UD 3ML (DUONEB)(J7620) NEB SCH ×4 (00:20→20:00)
[2019-07-17] MEDS: ADVAIR HFA 230/21MCG INHALER INH SCH ×3 (00:20→20:14)
[2019-07-17 04:55] LABS: HEMATOCRIT 36.1 % (36.0-47.0); HEMOGLOBIN 10.7 g/dl (12.0-15.5); MEAN CORPUSCULAR HEMOGLOBIN 30.1 pg (27.0-33.0); MEAN CORPUSCULAR HGB CONC 29.6 g/dl (32.0-36.5); MEAN CORPUSCULAR VOLUME 101.4 fl (80.0-96.0); PLATELET COUNT, AUTOMATED 299 10^3/uL (150-450); RED BLOOD COUNT 3.56 10^6/uL (4.00-5.40); WHITE BLOOD COUNT 6.1 10^3/uL (4.0-10.0)
[2019-07-17 05:25] LABS: BLOOD UREA NITROGEN 16 MG/DL (7-18); CALCIUM LEVEL 8.8 MG/DL (8.8-10.2); CARBON DIOXIDE LEVEL 49 MEQ/L (21-32); CHLORIDE LEVEL 92 MEQ/L (98-107); CREATININE FOR GFR 0.26 MG/DL (0.55-1.30); GLOMERULAR FILTRATION RATE > 60.0 (>45); GLUCOSE, FASTING 159 MG/DL (70-100); MAGNESIUM LEVEL 2.1 MG/DL (1.8-2.4); POTASSIUM SERUM 4.3 MEQ/L (3.5-5.1); SODIUM LEVEL 137 MEQ/L (136-145)
[2019-07-17] MEDS: TIOTROPIUM INHALER/CAPSULE (SPIRIVA) INH SCH (08:00)
[2019-07-17] MEDS: OMEPRAZOLE 20 MG CAP PO SCH (08:50)
[2019-07-17] MEDS: ATORVASTATIN 20 MG TAB PO SCH (08:50)
[2019-07-17] MEDS: LISINOPRIL *2.5 MG* TAB PO SCH (08:50)
[2019-07-17] MEDS: buPROPion **XL** TABLET 150MG (WELLBUTRIN XL) PO SCH (08:50)
[2019-07-17] MEDS: HEPARIN SOD (PORCINE) 5000UNITS/ML VIAL (J1644 PER 1000UNITS) SC SCH ×2 (08:51→21:34)
[2019-07-17] MEDS: methylPREDNISolone INJ 40 MG/1 ML VIAL (J2920) IV SCH ×3 (08:51→16:58)
[2019-07-17] MEDS: NICOTINE 7 MG/24 HR TRANSDERMAL TD SCH (08:51)
[2019-07-17] MEDS: D5W/0.45% SODIUM CHLORIDE 1,000 ML IV SCH (11:16)
--- NOTE | 2019-07-17 16:23 | CCN ---
DATE: 07/17/2019 CRITICAL CARE NOTE: The patient is seen in the intensive care unit having recently been weaned from noninvasive mechanical ventilation. She is critically ill. Her temperature is 97, pulse rate 100, respirations 22, blood pressure 105/65. Her oxygen saturation currently is 94% on 2 liters of oxygen via nasal cannula. Intake and output for the past 24 hours 1080 in, 1025 out, since midnight 550 in, 505 out. At bedside, she is ill-appearing and cachectic. Her mucosa is dry. Neck is supple. She wears dentures. Heart sounds are regular without appreciable murmur. Breath sounds are diminished with accessory muscle engagement during conversation. Expiratory phase is quite prolonged. There is hyperresonance to percussion. Abdomen is soft and nontender. The extremities show muscle wasting. Peripheral pulses are diminished. There is trace edema at the ankles. DIAGNOSTIC STUDIES: Her sodium is 137, potassium 4.3, chloride 92, CO2 49, BUN 16, creatinine 0.261, glucose 159. White cell count is 6.1, hemoglobin 10.7, hematocrit 36.1, platelet count is 299,000. Arterial blood gases most recently showed a pH of 7.34, pCO2 of 90, pO2 80, and saturation 96%. Sputum cultures are thus far negative. On medications review, she is receiving levofloxacin 750 mg a day, Solu-Medrol 40 mg every 8 hours, Advair 230 twice daily, Spiriva once daily, DuoNebs, subcutaneous heparin and Protonix. The primary problem requiring critical attention is: 1. Acute on chronic respiratory failure. The patient is currently off noninvasive positive pressure ventilation. She is not a candidate for home noninvasive positive pressure ventilation as she is still actively smoking. It is acceptable for her at this point to be downgraded and move out of intensive care unit (ICU) with supplemental oxygen at low-flow to target a saturation of 88-90. 2. The patient has end-stage lung disease. Unfortunately, continues to smoke despite multiple warnings and is on maximal inhaled bronchodilator therapy. 3. Deconditioning is a significant issue. The patient would benefit from physical therapy and occupational therapy. The patient's disease is quite advanced and she remains very tenuous. Her prognosis is guarded to poor. 47 minutes was spent in the provision of bedside critical care and coordination.
[2019-07-17] MEDS: LevoFLOXacin IV 750 MG in IV 1 EA IV SCH (21:34)
[2019-07-18] MEDS: IPRATROPIUM 0.5MG/ALBUTEROL 2.5MG INH SOL UD 3ML (DUONEB)(J7620) NEB SCH ×4 (00:39→20:13)
[2019-07-18] MEDS: methylPREDNISolone INJ 40 MG/1 ML VIAL (J2920) IV SCH ×3 (01:43→17:16)
[2019-07-18] MEDS: D5W/0.45% SODIUM CHLORIDE 1,000 ML IV SCH (02:31)
[2019-07-18] MEDS: ACETAMINOPHEN TAB 650MG DOSE (2X325MG) PO PRN (04:12)
[2019-07-18 05:56] LABS: HEMATOCRIT 38.2 % (36.0-47.0); MEAN CORPUSCULAR HEMOGLOBIN 29.3 pg (27.0-33.0); MEAN CORPUSCULAR HGB CONC 28.8 g/dl (32.0-36.5); MEAN CORPUSCULAR VOLUME 101.6 fl (80.0-96.0); PLATELET COUNT, AUTOMATED 253 10^3/uL (150-450); RED BLOOD COUNT 3.76 10^6/uL (4.00-5.40); WHITE BLOOD COUNT 9.1 10^3/uL (4.0-10.0)
[2019-07-18 06:00] VITALS: BP 116/80
[2019-07-18 06:53] LABS: BLOOD UREA NITROGEN 13 MG/DL (7-18); CHLORIDE LEVEL 91 MEQ/L (98-107); CREATININE FOR GFR 0.25 MG/DL (0.55-1.30); GLOMERULAR FILTRATION RATE > 60.0 (>45); GLUCOSE, FASTING 136 MG/DL (70-100); MAGNESIUM LEVEL 2.1 MG/DL (1.8-2.4); POTASSIUM SERUM 3.9 MEQ/L (3.5-5.1); SODIUM LEVEL 137 MEQ/L (136-145)
[2019-07-18 06:54] LABS: CARBON DIOXIDE LEVEL 47 MEQ/L (21-32)
[2019-07-18] MEDS: TIOTROPIUM INHALER/CAPSULE (SPIRIVA) INH SCH (08:03)
[2019-07-18] MEDS: ADVAIR HFA 230/21MCG INHALER INH SCH ×2 (08:04→20:13)
[2019-07-18] MEDS: OMEPRAZOLE 20 MG CAP PO SCH (08:45)
[2019-07-18] MEDS: ATORVASTATIN 20 MG TAB PO SCH (08:45)
[2019-07-18] MEDS: buPROPion **XL** TABLET 150MG (WELLBUTRIN XL) PO SCH (08:45)
[2019-07-18] MEDS: HEPARIN SOD (PORCINE) 5000UNITS/ML VIAL (J1644 PER 1000UNITS) SC SCH ×2 (08:45→20:54)
[2019-07-18] MEDS: LISINOPRIL *2.5 MG* TAB PO SCH (08:54)
[2019-07-18] MEDS: NICOTINE 7 MG/24 HR TRANSDERMAL TD SCH (08:54)
--- NOTE | 2019-07-18 09:41 | IPN ---
DATE: 07/17/2019 Patient remains dyspneic on exertion with conversational dyspnea. No fever or chills. No cough. Temperature is 97.6, pulse 109, respiratory 21, blood pressure 105/65, 99% on 2 liters nasal cannula. Generally, patient appears cachectic with mild respiratory distress. Five- to six-word conversational dyspnea. No cyanosis. Face is symmetric. Generally, awake, alert, oriented. No jugular venous distention (JVD) or thyromegaly. Lungs: Diminished breath sounds. Kyphosis. Increased anteroposterior (AP) diameter. Heart: S1, S2, sinus tachycardia. Abdomen is soft, nontender, and nondistended. Extremities: No pitting edema. Muscle atrophy of lower extremities. Appears older than her stated age. LABORATORY DATA: White count 6.1, hemoglobin 10, hematocrit 36, platelet count 299. Sodium 137, potassium 4.3, chloride 92, bicarbonate 49, BUN 16, creatinine 0.26, glucose of 159. Microbiology: Blood culture negative. Chest x-ray 05/27/2019: Chronic stable changes. ASSESSMENT AND PLAN: This is a 64-year-old, DO NOT RESUSCITATE, DO NOT INTUBATE, end-stage chronic obstructive pulmonary disease (COPD), on chronic 2 liters home oxygen, coronary artery disease (CAD), transferred to [facility] ([facility]) due to acute hypercarbic respiratory failure. CT shows questionable infection versus malignancy with severe pleural parenchymal scarring and emphysema both lungs. Venous gas was 7.3, CO2 of 57. Patient was placed on bilevel positive airway pressure (BiPAP), managed by pulmonary. IMPRESSION: Acute hypercapnic respiratory failure due to end-stage chronic obstructive pulmonary disease. Currently being weaned off BiPAP. Had been using it nightly. Mentation is back to baseline. Patient still refuses to stop smoking according to her snorkelling instructor. Patient has been approached by hospice, comfort measures only, but usually says "I'll think about it." COVID-19 was negative. Respiratory panel was negative. Patient is currently on Solu-Medrol 40 intravenous (IV) every 8 hourly, Advair HFA, DuoNebs, and Levaquin. Still on IV fluids. Left upper lobe cavitating mass. Still actively smoking. High risk of malignancy. Managed by pulmonologists Dr. Gonzalez and Dr. Henning. Currently on intravenous Levaquin. Bloodcultures negative. Sputum cultures not available. White count is normal, and patient has remained afebrile. Repeat CXR-chronic changes without consolidation Pulmonary cachexia with body mass index (BMI) of 17.8. Poor overall prognosis with expectations to decompensate again after hospital discharge. Patient has been approached by her snorkelling instructor regarding hospice and comfort measures, but patient has been deferring this decision. Acute Metabolic encephalopathy, improving with resolution of her hypercapnia, but not back to baseline. Chronic Hypoxic respiratory failure due tot endstage COPD. on supplemental oxygen to keep saturations 88-92%.. DISPOSITION: May transfer to medical/surgical floor. [facility]
[2019-07-18 14:01] VITALS: BP 115/80
--- NOTE | 2019-07-18 14:05 | IPN ---
DATE: 07/18/2019 Patient seems a little difficult to awaken this morning. When she did open her eyes, she was able to say her name and answer that she was doing "good." Patient has chronic dyspnea on exertion. Unable to work fully with physical therapy due to desaturation yesterday, which increased after resting. Patient is not as communicative and alert as she was yesterday. However, she was awakened from sleep this morning; therefore, we will keep an eye on her respiratory status and mental state due to increased risk of hypercapnia. Patient otherwise denied any chest pain, pressure, or tightness. She has chronic shortness of breath but says that she is "okay." No fever or chills overnight. No other issues per nursing. She has not been on bilevel positive airway pressure (BiPAP) last night as this has been discontinued and her gases have looked stable. VITALS: Temperature 98.6, pulse 110, respiratory rate 18, blood pressure 116/80, 97% on 2 liters nasal cannula. Generally, patient is awake, alert, oriented to herself only. She seems a little lethargic but still answering questions appropriately. Not as communicative and alert as she was yesterday. No jugular venous distention (JVD). No thyromegaly. Mild conversational dyspnea with five- to six-work conversational dyspnea. Lungs are diminished with increased anteroposterior (AP) diameter with very faint wheezing. Heart: S1, S2, sinus tachycardia. Abdomen is soft, nontender, and nondistended. Extremities have no pitting edema. LAB DATA: White count is 9, hemoglobin 11, hematocrit 38, platelet count 253. Sodium 137, potassium 3.9, chloride 91, bicarbonate 47, BUN 13, creatinine 0.25, glucose of 136. ASSESSMENT AND PLAN: This is a 64-year-old female, active smoker, with pulmonary cachexia, end-stage chronic obstructive pulmonary disease (COPD), chronic home oxygen dependent, admitted due to hypercapnic respiratory failure status post bilevel positive airway pressure therapy and intensive care unit (ICU) admission. IMPRESSION: 1. Acute hypoxic and hypercapnic respiratory failure. Hypercarbia has improved with BiPAP management per Dr. Henning. No BiPAP is needed. Patient is back to her normal acid-base balance. COVID-19 was negative. Respiratory panel was negative. 2. End-stage chronic obstructive pulmonary disease with acute exacerbation. Currently on Solu-Medrol and intravenous (IV) Levaquin. Saturating well on 2 liters nasal cannula, at baseline respiratory status. 3. Cavitating mass in left upper lobe. Due to active smoking, increased risk of malignancy. Followup with her textile machine operator as outpatient. No inpatient biopsy needed. 4. Community acquired pneumonia with scarring. Still currently on IV Levaquin. Blood cultures are negative. Unable to produce any sputum culture. 5. Pulmonary cachexia secondary to end-stage chronic obstructive pulmonary disease. Lab Analyst has been consulted. 6. Acute metabolic encephalopathy secondary to hypercarbia from end-stage chronic obstructive pulmonary disease. Improved, back to baseline, but will continue to monitor throughout the day. MTDD
[2019-07-18 20:00] VITALS: BP 112/77
[2019-07-18] MEDS: LevoFLOXacin IV 750 MG in IV 1 EA IV SCH (20:55)
[2019-07-19] MEDS: methylPREDNISolone INJ 40 MG/1 ML VIAL (J2920) IV SCH ×2 (01:19→09:00)
[2019-07-19] MEDS: IPRATROPIUM 0.5MG/ALBUTEROL 2.5MG INH SOL UD 3ML (DUONEB)(J7620) NEB SCH ×4 (01:56→19:57)
[2019-07-19 06:00] VITALS: BP 111/75
[2019-07-19 06:12] LABS: HEMATOCRIT 40.8 % (36.0-47.0); HEMOGLOBIN 11.5 g/dl (12.0-15.5); MEAN CORPUSCULAR HGB CONC 28.2 g/dl (32.0-36.5); PLATELET COUNT, AUTOMATED 243 10^3/uL (150-450); RED BLOOD COUNT 3.96 10^6/uL (4.00-5.40); WHITE BLOOD COUNT 9.4 10^3/uL (4.0-10.0)
[2019-07-19 07:08] LABS: BLOOD UREA NITROGEN 14 MG/DL (7-18); CALCIUM LEVEL 8.5 MG/DL (8.8-10.2); CARBON DIOXIDE LEVEL 54 MEQ/L (21-32); CHLORIDE LEVEL 93 MEQ/L (98-107); CREATININE FOR GFR 0.24 MG/DL (0.55-1.30); GLOMERULAR FILTRATION RATE > 60.0 (>45); GLUCOSE, FASTING 115 MG/DL (70-100); MAGNESIUM LEVEL 2.2 MG/DL (1.8-2.4); POTASSIUM SERUM 4.2 MEQ/L (3.5-5.1); SODIUM LEVEL 139 MEQ/L (136-145)
[2019-07-19] MEDS: ADVAIR HFA 230/21MCG INHALER INH SCH ×2 (07:49→19:57)
[2019-07-19] MEDS: TIOTROPIUM INHALER/CAPSULE (SPIRIVA) INH SCH (07:49)
[2019-07-19] MEDS: OMEPRAZOLE 20 MG CAP PO SCH (09:00)
[2019-07-19] MEDS ORDERED: predniSONE 20 MG TAB PO SCH (09:00)
[2019-07-19] MEDS: HEPARIN SOD (PORCINE) 5000UNITS/ML VIAL (J1644 PER 1000UNITS) SC SCH ×2 (09:00→20:40)
[2019-07-19] MEDS: ATORVASTATIN 20 MG TAB PO SCH (09:01)
[2019-07-19] MEDS: buPROPion **XL** TABLET 150MG (WELLBUTRIN XL) PO SCH (09:01)
[2019-07-19] MEDS: NICOTINE 7 MG/24 HR TRANSDERMAL TD SCH (09:31)
[2019-07-19] MEDS: LISINOPRIL *2.5 MG* TAB PO SCH (09:32)
[2019-07-19 14:22] VITALS: BP 108/74
[2019-07-19] MEDS ORDERED: PRED20TA PO (15:22)
[2019-07-19 20:43] VITALS: BP 107/73
[2019-07-20] MEDS: IPRATROPIUM 0.5MG/ALBUTEROL 2.5MG INH SOL UD 3ML (DUONEB)(J7620) NEB SCH ×4 (02:06→20:00)
[2019-07-20 06:13] LABS: HEMATOCRIT 38.1 % (36.0-47.0); HEMOGLOBIN 10.9 g/dl (12.0-15.5); MEAN CORPUSCULAR HEMOGLOBIN 28.9 pg (27.0-33.0); MEAN CORPUSCULAR HGB CONC 28.6 g/dl (32.0-36.5); MEAN CORPUSCULAR VOLUME 101.1 fl (80.0-96.0); PLATELET COUNT, AUTOMATED 243 10^3/uL (150-450); RED BLOOD COUNT 3.77 10^6/uL (4.00-5.40); WHITE BLOOD COUNT 11.4 10^3/uL (4.0-10.0)
[2019-07-20 06:53] LABS: BLOOD UREA NITROGEN 14 MG/DL (7-18); CALCIUM LEVEL 8.7 MG/DL (8.8-10.2); CARBON DIOXIDE LEVEL 56 MEQ/L (21-32); CHLORIDE LEVEL 88 MEQ/L (98-107); CREATININE FOR GFR 0.27 MG/DL (0.55-1.30); GLOMERULAR FILTRATION RATE > 60.0 (>45); GLUCOSE, FASTING 66 MG/DL (70-100); MAGNESIUM LEVEL 2.3 MG/DL (1.8-2.4); SODIUM LEVEL 142 MEQ/L (136-145)
[2019-07-20] MEDS: TIOTROPIUM INHALER/CAPSULE (SPIRIVA) INH SCH (07:23)
[2019-07-20] MEDS: ADVAIR HFA 230/21MCG INHALER INH SCH ×2 (07:24→20:21)
[2019-07-20] MEDS ORDERED: FUROSEMIDE 20 MG TAB PO ONE (09:15)
[2019-07-20] MEDS: NICOTINE 7 MG/24 HR TRANSDERMAL TD SCH (09:26)
[2019-07-20] MEDS: OMEPRAZOLE 20 MG CAP PO SCH (09:26)
[2019-07-20] MEDS: LISINOPRIL *2.5 MG* TAB PO SCH (09:27)
[2019-07-20] MEDS: ATORVASTATIN 20 MG TAB PO SCH (09:27)
[2019-07-20] MEDS: predniSONE 20 MG TAB PO SCH (09:27)
[2019-07-20] MEDS: buPROPion **XL** TABLET 150MG (WELLBUTRIN XL) PO SCH (09:27)
[2019-07-20] MEDS: HEPARIN SOD (PORCINE) 5000UNITS/ML VIAL (J1644 PER 1000UNITS) SC SCH ×2 (09:28→20:11)
--- NOTE | 2019-07-20 13:25 | IPN ---
DATE OF SERVICE: 07/19/2019 She continues to have dyspnea on exertion with getting up from bed. No chest pain, pressure or tightness. She still has occasional cough which is dry. Afebrile. No chills. No nausea or vomiting. Temperature 98.6, pulse 112, respiratory rate 18, blood pressure 111/75, 97% on 2 liters nasal cannula. Generally, the patient is in mild distress, five to six word conversational dyspnea, no tracheal deviation. No pallor or icterus. No jugular venous distention (JVD). Lungs diminished with faint expiratory wheezing. Heart: S1, S2, sinus rhythm and tachycardic. Abdomen is soft, nontender, and nondistended. Extremities have no pitting edema. LABORATORY DATA: White count is 9.4, hemoglobin 11, hematocrit 40, platelet count 243. Sodium 139, potassium 4.2, chloride 93, bicarbonate 54, BUN 14, creatinine 0.24, glucose of 115. ASSESSMENT AND PLAN: This is a 64-year-old female with history of end stage chronic obstructive pulmonary disease (COPD), chronic hypoxic respiratory failure, admitted due to hypercapnic respiratory failure requiring bilevel positive airway pressure therapy in the intensive care unit (ICU). ACUTE ISSUES: 1. Acute hypoxic and hypercapnic respiratory failure. Has improved back to baseline. She is has end stage COPD and is not ready for hospice or comfort measures and has hopes that she will remain stable enough to go home. However, patient is end stage, unlikely to do well as we have noted she desaturates when she gets up from bed. Per Dr. Henning, real estate legal assistant, no BiPAP will be needed. Patient says that she does not smoke anymore, still smokes at home, although her sister says that he smokes outside the home. 2. End-stage chronic obstructive pulmonary disease with acute exacerbation and hypercapnic respiratory failure requiring BiPAP therapy. Off BiPAP now. At baseline respiratory status, which is tenuous. Patient is appropriate for hospice, but she does not want to do this at this time. Per the patient, her son says she should not go on hospice. The patient's sister, who is the health care proxy, is asking for hospice. Patient and Family Services (PFS) has been consulted to speak with the whole family. 3. Cavitating mass in the left upper lobe. Due to active smoking, increased risk of malignancy. The patient is to followup with her real estate legal assistant as outpatient. No need for inpatient biopsy needed. 4. Pulmonary cachexia due to end-stage chronic obstructive pulmonary disease. Laboratory Tech has been consulted. 5. Acute metabolic encephalopathy due to hypercapnic respiratory failure has resolved. Disposition: fragile, and desaturates with standing up, maximum 2 person assist with ADL's. Pt says she does NOT want hospice. Her HCP/sister requesting Hospice. Pt agreed to Palliative Care,but wants continued medical treatment in the future should she worsen. Pt is not appropriate for rehab as she does not tolerate ambulation without desaturation, and if cannot care for her at home, will need SNF placement. Pt, however, says,"he gets nervous when I don't look good, but he'll take care of me." Pt does not want fdc placement. PFS consulted. Pt is medically optimized, she is ENDSTAGE COPD, with very POOR prognosis. SUSAN
[2019-07-20 14:29] VITALS: BP 101/69
[2019-07-20] MEDS: ACETAMINOPHEN TAB 650MG DOSE (2X325MG) PO PRN (20:12)
[2019-07-20 22:00] VITALS: BP 100/64
[2019-07-21] MEDS: IPRATROPIUM 0.5MG/ALBUTEROL 2.5MG INH SOL UD 3ML (DUONEB)(J7620) NEB SCH ×4 (01:45→19:16)
[2019-07-21 06:00] VITALS: BP 102/66
[2019-07-21 06:19] LABS: HEMATOCRIT 38.7 % (36.0-47.0); HEMOGLOBIN 11.5 g/dl (12.0-15.5); MEAN CORPUSCULAR HEMOGLOBIN 29.7 pg (27.0-33.0); MEAN CORPUSCULAR HGB CONC 29.7 g/dl (32.0-36.5); PLATELET COUNT, AUTOMATED 233 10^3/uL (150-450); RED BLOOD COUNT 3.87 10^6/uL (4.00-5.40); WHITE BLOOD COUNT 12.3 10^3/uL (4.0-10.0)
[2019-07-21] MEDS: ADVAIR HFA 230/21MCG INHALER INH SCH ×2 (06:26→19:16)
[2019-07-21] MEDS: TIOTROPIUM INHALER/CAPSULE (SPIRIVA) INH SCH (06:26)
[2019-07-21 06:55] LABS: BLOOD UREA NITROGEN 10 MG/DL (7-18); CALCIUM LEVEL 8.9 MG/DL (8.8-10.2); CARBON DIOXIDE LEVEL 59 MEQ/L (21-32); CHLORIDE LEVEL 85 MEQ/L (98-107); CREATININE FOR GFR 0.17 MG/DL (0.55-1.30); GLOMERULAR FILTRATION RATE > 60.0 (>45); GLUCOSE, FASTING 67 MG/DL (70-100); MAGNESIUM LEVEL 2.2 MG/DL (1.8-2.4); SODIUM LEVEL 138 MEQ/L (136-145)
[2019-07-21] MEDS: LISINOPRIL *2.5 MG* TAB PO SCH (09:00)
[2019-07-21] MEDS: NICOTINE 7 MG/24 HR TRANSDERMAL TD SCH (09:11)
[2019-07-21] MEDS: buPROPion **XL** TABLET 150MG (WELLBUTRIN XL) PO SCH (09:11)
[2019-07-21] MEDS: OMEPRAZOLE 20 MG CAP PO SCH (09:11)
[2019-07-21] MEDS: ATORVASTATIN 20 MG TAB PO SCH (09:11)
[2019-07-21] MEDS: predniSONE 20 MG TAB PO SCH (09:11)
[2019-07-21] MEDS: HEPARIN SOD (PORCINE) 5000UNITS/ML VIAL (J1644 PER 1000UNITS) SC SCH (09:12)
[2019-07-21] MEDS ORDERED: LORazepam 0.5 MG TAB PO ONE (11:00)
--- NOTE | 2019-07-21 12:29 | IPNPDOC ---
Date Seen The patient was seen on 07/21/19. Progress Note Pt had no o/n events. Chronic cough, stable, not improving. OBJECTIVE PHYSICAL EXAMINATION: VITAL SIGNS: Please see below. GENERAL: Appears weak, but speaks in full sentences HEENT: Normocephalic, atraumatic, dry mucous membranes NECK: Supple CARDIOVASCULAR EXAMINATION: S1, S2 RESPIRATORY EXAMINATION: diminished ABDOMINAL EXAMINATION: Soft, nontender, nondistended, positive bowel sounds EXTREMITIES: no edema SKIN: No rash NEUROLOGICAL EXAMINATION: Awake PSYCHIATRIC EXAMINATION: Calm and cooperative, has capacity ASSESSMENT AND PLAN: This is a 64-year-old female with history of end stage chronic obstructive pulmonary disease (COPD), chronic hypoxic respiratory failure, admitted to ICU due to hypercapnic respiratory failure requiring bilevel positive airway pressure therapy, clinical improvement was reserved. Pulmonology was consulted during hospitalization. After long discussion, patient opted for INFORMATION SYSTEMS COORDINATOR. Patient reports trembles, minimal improvement from previous with breathing, she opted for hospice, I had a long discussion with patient in regards to this, she has capacity. Status post change, dispo pending home hospice. #Acute on chronic hypoxic and hypercapnic respiratory failure secondary to end stage COPD dependent on O2 with underlying SLOANE cavitating mass. 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 #Acute metabolic encephalopathy due to hypercapnic respiratory failure, resolve d. #Mood disorder: Continue home meds #GERD: cont PPI #HTN: cont home med #HLD: dc home med DVT ppx: dc heparin, SCD DNR/DNI, INFORMATION SYSTEMS COORDINATOR, dc lab orders Dispo: home hospice 07/20 vs 07/21 VS, I&O, 24H, Fishbone Vital Signs/I&O Vital Signs Date Time Temp Pulse Resp B/P (MAP) Pulse Ox O2 Delivery O2 Flow Rate FiO2 07/21/19 08:00 2.0 07/21/19 06:00 99.0 100 18 102/66 (78) 99 Nasal Cannula 07/17/19 04:00 35 I&O- Last 24 Hours up to 6 AM 07/21/19 05:59 Intake Total 910 ml Output Total 1950 ml Balance -1040 ml Laboratory Data 24H LABS Laboratory Tests 2 07/21/19 05:44: Nucleated Red Blood Cells % (auto) 0.0, Anion Gap , Glomerular Filtration Rate > 60.0, Calcium Level 8.9, Magnesium Level 2.2 CBC/BMP Laboratory Tests 07/21/19 05:44 Microbiology Microbiology 07/14/19 Blood Culture - Final, Complete NO GROWTH AFTER 5 DAYS MALVIN PIMENTEL MD July 21, 2019 12:29
--- NOTE | 2019-07-22 00:54 | IPN ---
DATE: 07/20/2019 PRIMARY CARE PROVIDER: Divya Mehta NP Agueda was seen while rounding for the hospitalists. Admitted with acute on chronic respiratory failure. Was found to have end-stage lung disease and is an active smoker, who is followed by [facility]. She feels about the same as yesterday, chronically short of breath. Does have a little edema today that she says is new. No orthopnea nor paroxysmal nocturnal dyspnea (PND). PHYSICAL EXAMINATION: 107/73, pulse of 100, respirations 18, 94% oxygen saturation liters. GENERAL APPEARANCE: Alert, conversant, resting quite comfortably. HEENT: Unremarkable. LUNGS: Decreased breath sounds but clear. HEART: Regular rate and rhythm. ABDOMEN: Soft, nontender. Trace to 1+ peripheral edema. LABS: White count 11.4, hemoglobin 10.9, platelets 243. Sodium 142, potassium 4, BUN 14, creatinine 0.2, glucose 66. IMPRESSION: 1. Acute on chronic respiratory failure. She is improved on her current regimen, which we will continue. She has a little peripheral edema, probably from the steroids. I will give her a low dose of furosemide as a single dose today. We will get a home safety evaluation for her. 2. Cavitary lung mass. Patient was seen without benefit of yesterday's rounding notes, which have not been transcribed. Previous two rounding notes indicate a left upper lobe cavitary mass. There is no recent CT in the hospital record. Perhaps this was done as an outpatient. 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 Addendum: Still looking through her office record like this thick-walled cavitary lesion left upper lobe would not meet mural nodularity. Mural intraluminal septation and spiculated margins along the inferior border dates back to 02/05/2013. She underwent bronchoscopy on 05/18/2013. Acid-fast bacillus was negative in December 2013. 3. Congestive heart failure with reduced ejection fraction. She had a stress-induced cardiomyopathy. Had left heart catheterization. It showed severe left ventricle (LV) dysfunction, ejection fraction 25%, patent coronary artery vessels. This dates back to January 2018. PLAN: Is for gentle diuresis today. I asked staff to obtain yesterday's rounding note, which is not yet transcribed.
[2019-07-22] MEDS: IPRATROPIUM 0.5MG/ALBUTEROL 2.5MG INH SOL UD 3ML (DUONEB)(J7620) NEB SCH ×2 (01:34→08:27)
[2019-07-22] MEDS: TIOTROPIUM INHALER/CAPSULE (SPIRIVA) INH SCH (08:21)
[2019-07-22] MEDS: ADVAIR HFA 230/21MCG INHALER INH SCH (08:21)
[2019-07-22] MEDS: NICOTINE 7 MG/24 HR TRANSDERMAL TD SCH (09:28)
[2019-07-22 09:29] VITALS: BP 112/70
[2019-07-22] MEDS: buPROPion **XL** TABLET 150MG (WELLBUTRIN XL) PO SCH (09:29)
[2019-07-22] MEDS: OMEPRAZOLE 20 MG CAP PO SCH (09:29)
[2019-07-22] MEDS: LISINOPRIL *2.5 MG* TAB PO SCH (09:29)
[2019-07-22] MEDS: predniSONE 20 MG TAB PO SCH (09:29)
--- NOTE | 2019-07-22 10:40 | DS.PDOC ---
Discharge Summary General Date of Admission Jul 14, 2019 at 14:47 Date of Discharge 07/22/19 Discharge Summary PROCEDURES PERFORMED DURING STAY: none ADMITTING DIAGNOSES: 1. Acute on chronic respiratory failure with hypercapnia and hypoxia DISCHARGE DIAGNOSES: 1. End-stage COPD, acute on chronic respiratory failure with hypercapnia and hypoxia, new cavitary lesion in the SLOANE, hospice COMPLICATIONS/CHIEF COMPLAINT: Hypercapnic Respiratory Failure. HISTORY OF PRESENT ILLNESS/hospital course: This is a 64-year-old female with history of end stage COPD dependent on O2, chronic hypoxic respiratory failure was initially admitted to ICU due to hypercapnic respiratory failure requiring bilevel positive airway pressure therapy, clinical improvement was reserved. Pulmonology was consulted during hospitalization. He was subsequently transferred out of the ICU with stable conditions, however, due to minimal improvement and after long discussion with patient and her underlying poor prognosis, patient opted for [employer]. She did report trembles, minimal improvement from previous with breathing, which improved with Ativan. Meds that were continued include Mood disorder meds, PPI for GERD, HTN meds. She will discharged on a steroid taper, continue nebs when necessary, and morphine, Ativan, for ASPH[employer] MIXER. Meds will likely change after hospice team takes over. All questions were answered. Follow-up when necessary for palliative tx versus no hospital follow-up upon further discussion with hospice team. [facility] [employer] form updated. 32 minutes were spend on dc coordination. Vital Signs/I&Os Vital Signs Date Time Temp Pulse Resp B/P (MAP) Pulse Ox O2 Delivery O2 Flow Rate FiO2 07/22/19 09:29 112/70 07/21/19 20:00 2.0 07/21/19 06:00 99.0 100 18 99 Nasal Cannula 07/17/19 04:00 35 I&O- Last 24 Hours up to 6 AM 07/22/19 06:00 Intake Total 385 ml Output Total 726 ml Balance -341 ml Microbiology Microbiology 07/14/19 Blood Culture - Final, Complete NO GROWTH AFTER 5 DAYS Discharge Medications Scheduled Acetaminophen/Diphenhydramine (Acetaminophen Pm Caplet) 1 Tab Tab, 2 TAB PO QHS, (Reported) Albuterol Sulf (Albuterol Sulfate) 2.5 Mg/3 Ml Nebu, 2.5 MG INH BID, (Reported) Atorvastatin Calcium (Atorvastatin Calcium) 40 Mg Tablet, 40 MG PO DAILY, (Reported) Bupropion Hcl (Bupropion Xl) 150 Mg Tab, 150 MG PO DAILY, (Reported) Cholecalciferol (Vitamin D3) (Vitamin D3) 1,000 Unit Tablet, 1,000 UNITS PO DAILY, (Reported) Fluticasone/Vilanterol (Breo Ellipta 200-25 Mcg INH) 1 Inh Inh, 1 INH INH DAILY, (Reported) Lactulose (Lactulose) 10 Gm/15 Ml Solution, 15 ML PO DAILY, (Reported) Lisinopril (Lisinopril) 2.5 Mg Tablet, 2.5 MG PO DAILY, (Reported) Mirtazapine (Mirtazapine) 30 Mg Tab.rapdis, 30 MG PO QHS, (Reported) Multivitamin (Multivitamins) 1 Each Capsule, 1 CAP PO DAILY, (Reported) Nicotine (Nicotine Patch) 7 Mg/24 Hr Dis, 7 MG TD DAILY, (Reported) Omeprazole (Omeprazole) 40 Mg Capsule.dr, 40 MG PO DAILY, (Reported) Prednisone (Prednisone) 20 Mg Tablet, 20 MG PO QAM Tiotropium [place] (Spiriva) 18 Mcg Cap, 1 INHALATION INH DAILY, (Reported) Scheduled PRN Albuterol Sulfate (Proventil Hfa) 108 Mcg/Act Aer, 2 PUFFS INH QID PRN for SOB/WHEEZING, (Reported) Azelastine HCl (Azelastine HCl) 0.15% [place].pump, 2 SPRAY NARES BID PRN for ALLERGIES, (Reported) Docusate Sodium (Stool Softener) 100 Mg Capsule, 100 MG PO BID PRN for CONSTIPATION, (Reported) Melatonin (Melatonin) 10 Mg Capsule, 10 MG PO QHS PRN for SLEEP, (Reported) Nitroglycerin (Nitrostat) 0.4 Mg Tab.subl, 0.4 MG SL NITRO PRN for CHEST PAIN, (Reported) Miscellaneous Medications [Patient Comment] , (Reported) UNABLE TO VERIFY MEDICATIONS WITH PATIENT - MED LIST OBTAINED FROM EXTERNAL MED HX AND PREVIOUS MD VISIT IN APRIL 2019 Allergies Coded Allergies: No Known Allergies (Unverified , 04/16/19) MALVIN PIMENTEL MD July 22, 2019 09:55
[2019-07-22] MEDS ORDERED: PRED20TA PO (10:51)
[2019-07-22] MEDS ORDERED: MORP1TAB19 PO (10:51)
[2019-07-22] MEDS ORDERED: ATIV1TAB10 PO (10:51)
== END 2019-07-22 12:50 | disposition hospice, home (50) | DRG 189 ==
LOC: M ED INP 14:47 → M RR INP 16:52 → M MS5PR 07-17 15:25
PROVIDERS: ADMIT Internal Medicine; ATTEND Family Medicine
DX: J96.22 Acute and chronic respiratory failure with hypercapnia (principal); J18.9 Pneumonia, unspecified organism; G93.41 Metabolic encephalopathy; E87.4 Mixed disorder of acid-base balance; R64 Cachexia; Z68.1 Body mass index [BMI] 19.9 or less, adult; I50.22 Chronic systolic (congestive) heart failure; R91.8 Other nonspecific abnormal finding of lung field; J96.21 Acute and chronic respiratory failure with hypoxia; J43.1 Panlobular emphysema; Z51.5 Encounter for palliative care; Z66 Do not resuscitate; I25.10 Atherosclerotic heart disease of native coronary artery without angina pectoris; M62.838 Other muscle spasm; F17.210 Nicotine dependence, cigarettes, uncomplicated; F32.9 Major depressive disorder, single episode, unspecified; Z79.52 Long term (current) use of systemic steroids; Z79.899 Other long term (current) drug therapy; Z86.010 Personal history of colon polyps; Z87.81 Personal history of (healed) traumatic fracture; Z99.81 Dependence on supplemental oxygen